=== PATIENT | male | born 1940 | race Caucasian/White ===

== ENCOUNTER 2016-07-01 02:35 | Emergency (ER) | payer MEDICARE, OTHER ==
[2016-07-01 03:55] LABS: ALANINE AMINOTRANSFERASE 58 U/L (21-72); ALBUMIN 3.2 g/dL (3.5-5.0); ALKALINE PHOSPHATASE 101 U/L (38-126); ANION GAP 10 (5-19); ASPARTATE AMINO TRANSFERASE 45 U/L (17-59); BILIRUBIN,TOTAL 0.7 mg/dL (0.2-1.3); BLOOD UREA NITROGEN 18 mg/dL (7-20); CALCIUM 8.8 mg/dL (8.4-10.2); CARBON DIOXIDE 31 mmol/L (22-30); CHLORIDE 97 mmol/L (98-107); CREATINE KINASE 44 U/L (55-170); CREATININE RESULT 1.23 mg/dL (0.52-1.25); GLUCOSE 128 mg/dL (75-110); POTASSIUM 4.2 mmol/L (3.6-5.0); SODIUM 137.6 mmol/L (137-145)
--- NOTE | 2016-07-01 03:56 | ER Document Report ---
ED General - General Chief Complaint: Abdominal Pain Stated Complaint: ABDOMINAL PAIN Notes: Patient is a 75-year-old male presents with complaint of pain in his left upper abdomen. No fevers. No diarrhea. Last bone marrow was 2 days ago. He did have vomiting 2 days ago. No vomiting since then. He had open heart surgery with coronary bypass 2 weeks ago. This was performed at [facility]. His pain is new tonight and has not been occurring since surgery until tonight. Pain is little bit worse when taking a quick deep breath. He is on Eliquis. - Related Data Allergies/Adverse Reactions: No Known Drug Allergies Allergy (Verified 07/01/16 03:50) Past Medical History - Social History Smoking Status: Never Smoker Frequency of alcohol use: None Drug Abuse: None Family History: Reviewed & Not Pertinent Review of Systems - Review of Systems Notes: My Normal Review Basic REVIEW OF SYSTEMS: CONSTITUTIONAL : Denies fever, chills, or sweats. Denies recent illness. EENT: Denies eye, ear, throat, or mouth pain or symptoms. Denies nasal or sinus congestion. CARDIOVASCULAR: Denies chest pain. RESPIRATORY: Denies cough, cold, or chest congestion. Denies shortness of breath, difficulty breathing, or wheezing. GASTROINTESTINAL: Left upper quadrant abdominal pain. Vomiting 2 days ago. Denies constipation. Last BM: GENITOURINARY: Denies difficulty urinating, painful urination, burning, frequency, or blood in urine. FEMALE GENITOURINARY: Denies vaginal bleeding, abnormal or irregular periods. LMP: MUSCULOSKELETAL: Denies neck or back pain or joint pain or swelling. SKIN: Denies rash or skin lesions. NEUROLOGICAL: Denies altered mental status or loss of consciousness. Denies headache. Denies weakness or paralysis or loss of use of either side. Denies problems with gait or speech. Denies sensory or motor loss. ALL OTHER SYSTEMS REVIEWED AND NEGATIVE. Physical Exam - Vital signs Vitals: Temp Resp BP Pulse Ox 97.5 F 19 130/60 H 94 07/01/16 02:53 07/01/16 02:53 07/01/16 02:53 07/01/16 02:53 - Notes Notes: General Appearance: Well nourished, alert, cooperative, no acute distress, mild obvious discomfort. Well-appearing Vitals: reviewed, See vital signs table. Head: no swelling or tenderness to the head Eyes: PERRL, EOMI, Conjuctiva clear Mouth: No decreasd moisture Neck: Supple, no neck tenderness, No thyromegaly Lungs: No wheezing, No rales, No rhonci, No accessory muscle use, good air exchange bilaterally. Heart: Normal rate, Regular rythm, No murmur, no rub Abdomen: Normal BS, soft, No rigidity, No reducible abdominal tenderness to palpation, No guarding, no rebound, no abdominal masses, no organomegaly Extremities: strength 5/5 in all extremities, good pulses in all extremities, no swelling or tenderness in the extremities, no edema. Skin: warm, dry, appropriate color, no rash Neuro: speech clear, oriented x 3, normal affect, responds appropriately to questions. Course - Vital Signs Vital signs: Temp Pulse Resp BP Pulse Ox 97.5 F 21 H 120/59 L 96 07/01/16 02:53 07/01/16 06:01 07/01/16 06:01 07/01/16 06:01 - Laboratory Result Diagrams: 07/01/16 02:53 07/01/16 02:53 Laboratory results interpreted by me: 07/01/16 07/01/16 02:53 02:53 RBC 3.27 L Hgb 10.0 L Hct 30.0 L RDW 15.6 H Plt Count 514 H Chloride 97 L Carbon Dioxide 31 H Est GFR (Non-Af Amer) 58 L Glucose 128 H Creatine Kinase 44 L Total Protein 6.0 L Albumin 3.2 L - EKG Interpretation by Me Additional EKG results interpreted by me: 07/01/16 03:56 EKG is reviewed and interpreted by me. EKG shows normal sinus rhythm with a rate of [address] segment elevation or depression. No ischemic T wave inversions. [place] interval, QRS duration, QTC intervals are within normal range. No old EKG available for comparison. - Transfer of Care Notes: 07/01/16 07:[address] angiogram of his chest did not show evidence pulmonary embolism but it did show a large pleural effusion on the left. He has a smaller pleural effusion on the right. Despite this the patient has no difficulty breathing. He is actually lying flat in the bed and has a pulse ox of 97% on room air and has no difficulty breathing at all. I do not suspect this to be a hemorrhagic effusion being that his hemoglobin 3 days ago was lower than it is today. I do suspect that this is probably why he has a pleuritic-type pain. Patient says that this pain is actually improved. His cardiac enzymes are normal. He looks well. I did talk to his surgeon, Dr. Ramírez, who requested as long as the patient clinically looks well that he follow-up in our office on Monday and that they would perform a tap of the fluid. I did explain this to the patient and he is comfortable with this. Patient clinically looks very well and I feel that that this is appropriate at this time. Did inform the patient that he must have a very low threshold to return to the ER immediately if he has any significant difficulty breathing, worsening pain, fevers, or feels unwell. Patient agrees. I did speak with Anitha from the patient's rehabilitation. I did inform her of the plan. She said they would be able to make the appointment and get him to the appointment. I also informed her that he must return to ER immediately if has any signs of difficulty breathing. She agrees. Spoke with the patient's daughter just to inform her of the plan. She is also agreeable to plan and had no further questions. Patient will be discharged home but again is strongly encouraged return to ER if there is any signs of difficulty breathing or feels unwell in anyway. Dictation of this chart was performed using voice recognition software; therefore, there may be some unintended grammatical errors. Discharge - Discharge Clinical Impression: Pleural effusion Condition: Good Disposition: HOME, SELF-CARE Additional Instructions: Please call office at [phone] to make a followup appointment for Monday so they can tap the fluid in his lung to analyze it. Please call the office today to make the appointment for Monday. Dr. Ramírez says the appointment will be with his partner Dr. Marroquin. Please have a low threshold to return to the ER immediately if Mr. Hernandez has any difficulty breathing , fevers, or appears unwell in any way. Dr. Ramírez office: [address] [place], [place] [phone]
[2016-07-01 04:03] LABS: ABSOLUTE EOSINOPHILS # (AUTO) 0.3 10^3/uL (0.0-0.6); ABSOLUTE LYMPHOCYTES (AUTO) 1.5 10^3/uL (0.5-4.7); ABSOLUTE MONOCYTES (AUTO) 0.7 10^3/uL (0.1-1.4); ABSOLUTE NEUT (AUTO) 5.7 10^3/uL (1.7-8.2); BASOPHILS % (AUTO) 0.5 % (0-2); EOSINOPHILS % (AUTO) 3.5 % (0-6); LYMPHOCYTES % (AUTO) 17.8 % (13-45); MEAN CORPUSCULAR HEMOGLOBIN 30.5 pg (27.0-33.4); MEAN CORPUSCULAR HGB CONC 33.2 g/dL (32.0-36.0); MEAN CORPUSCULAR VOLUME 92 fl (80-97); RED BLOOD COUNT 3.27 10^6/uL (4.35-5.55); RED CELL DISTRIBUTION WIDTH 15.6 % (11.5-14.0); SEGMENTED NEUTROPHILS % (AUTO) 69.2 % (42-78); WHITE BLOOD COUNT 8.3 10^3/uL (4.0-10.5)
[2016-07-01 04:07] LABS: CREATINE KINASE MB 1.31 ng/mL (<4.55)
[2016-07-01 04:09] LABS: TROPONIN I 0.034 ng/mL
[2016-07-01 09:32] VITALS: BP 121/63
--- NOTE | 2016-07-01 11:03 | EKG REPORT ---
SEVERITY:- BORDERLINE ECG - SINUS RHYTHM BORDERLINE T ABNORMALITIES, DIFFUSE LEADS : Confirmed by: Veronica Smith 01-Jul-2016 11:02:04
== END 2016-07-01 09:15 | disposition home or self-care (01) ==
LOC: ER 02:35
DX: J90 Pleural effusion, not elsewhere classified (principal); R10.12 Left upper quadrant pain
CPT/HCPCS: 36415; 71010; 71275; 80053; 82550; 82553; 84484; 85025; 93005; 93010; 99285

== ENCOUNTER 2016-07-04 14:53 | Inpatient (IN) | payer MEDICARE, OTHER ==
[2016-07-04 15:52] LABS: ABSOLUTE BASOPHILS # (AUTO) 0.1 10^3/uL (0.0-0.2); ABSOLUTE EOSINOPHILS # (AUTO) 0.3 10^3/uL (0.0-0.6); ABSOLUTE LYMPHOCYTES (AUTO) 1.4 10^3/uL (0.5-4.7); ABSOLUTE MONOCYTES (AUTO) 0.7 10^3/uL (0.1-1.4); ABSOLUTE NEUT (AUTO) 6.1 10^3/uL (1.7-8.2); BASOPHILS % (AUTO) 0.6 % (0-2); HEMATOCRIT 28.5 % (37.9-51.0); HEMOGLOBIN 9.3 g/dL (13.5-17.0); HGB HCT DIFFERENCE -0.6; LYMPHOCYTES % (AUTO) 16.4 % (13-45); MEAN CORPUSCULAR HEMOGLOBIN 29.9 pg (27.0-33.4); MEAN CORPUSCULAR HGB CONC 32.7 g/dL (32.0-36.0); MEAN CORPUSCULAR VOLUME 92 fl (80-97); MONOCYTES % (AUTO) 7.8 % (3-13); RED BLOOD COUNT 3.11 10^6/uL (4.35-5.55); RED CELL DISTRIBUTION WIDTH 15.6 % (11.5-14.0); SEGMENTED NEUTROPHILS % (AUTO) 72.2 % (42-78); WHITE BLOOD COUNT 8.5 10^3/uL (4.0-10.5)
[2016-07-04 16:10] LABS: ALANINE AMINOTRANSFERASE 40 U/L (21-72); ALBUMIN 2.5 g/dL (3.5-5.0); ALKALINE PHOSPHATASE 88 U/L (38-126); ANION GAP 10 (5-19); ASPARTATE AMINO TRANSFERASE 31 U/L (17-59); BILIRUBIN,TOTAL 0.6 mg/dL (0.2-1.3); BLOOD UREA NITROGEN 23 mg/dL (7-20); CALCIUM 8.3 mg/dL (8.4-10.2); CARBON DIOXIDE 29 mmol/L (22-30); CHLORIDE 97 mmol/L (98-107); CREATINE KINASE 118 U/L (55-170); CREATININE RESULT 1.24 mg/dL (0.52-1.25); GLUCOSE 152 mg/dL (75-110); LIPASE 426.6 U/L (23-300); POTASSIUM 4.4 mmol/L (3.6-5.0); SODIUM 135.7 mmol/L (137-145); TOTAL PROTEIN 5.2 g/dL (6.3-8.2)
[2016-07-04 16:22] LABS: CREATINE KINASE MB 2.22 ng/mL (<4.55); TROPONIN I 0.025 ng/mL
[2016-07-04] MEDS ORDERED: NORMAL SALINE 1000 ML 1,000 ML IV ONE (16:59)
[2016-07-04] MEDS ORDERED: LIDOCAINE 1% INJ-PF (10 MG/ML) 30 ML SDV INJ ONE (17:21)
--- NOTE | 2016-07-04 17:26 | ER Document Report ---
ED General - General Chief Complaint: Fall Injury Stated Complaint: FALL;BODY PAIN Mode of Arrival: Medic Information source: Patient Notes: 75-year-old male who has had low blood pressure over the past few days and was actually taken off his lisinopril presents with complaints of syncope after a bowel movement. pt denies any chest pain sob, pt found hypotensvie by ems - HPI Onset: Just prior to arrival Onset/Duration: Sudden Quality of pain: Achy Severity: Mild Pain Level: 1 Associated symptoms: Other Exacerbated by: Denies Relieved by: Denies Similar symptoms previously: No Recently seen / treated by doctor: No - Related Data Allergies/Adverse Reactions: No Known Drug Allergies Allergy (Verified 07/01/16 03:50) Past Medical History - Social History Smoking Status: Never Smoker Cigarette use (# per day): No Chew tobacco use (# tins/day): No Smoking Education Provided: No Family History: Reviewed & Not Pertinent Review of Systems - Review of Systems Notes: REVIEW OF SYSTEMS: CONSTITUTIONAL : Denies fever, chills, or sweats. Denies recent illness. EENT: Denies eye, ear, throat, or mouth pain or symptoms. Denies nasal or sinus congestion or discharge. Denies throat, tongue, or mouth swelling or difficulty swallowing. CARDIOVASCULAR: Denies chest pain. Denies palpitations or racing or irregular heart beat. Denies ankle edema. RESPIRATORY: Denies cough, cold, or chest congestion. Denies shortness of breath, difficulty breathing, or wheezing. GASTROINTESTINAL: Denies abdominal pain or distention. Denies nausea, vomiting , or diarrhea. Denies blood in vomitus, stools, or per rectum. Denies black, tarry stools. Denies constipation. GENITOURINARY: Denies difficulty urinating, painful urination, burning, frequency, blood in urine, or discharge. MUSCULOSKELETAL: Denies back or neck pain or stiffness. Denies joint pain or swelling. SKIN: laceration HEMATOLOGIC : Denies easy bruising or bleeding. LYMPHATIC: Denies swollen, enlarged glands. NEUROLOGICAL: syncope PSYCHIATRIC: Denies anxiety or stress. Denies depression, suicidal ideation, or homicidal ideation. ALL OTHER SYSTEMS REVIEWED AND NEGATIVE. Dictation was performed using [employer] voice recognition software PHYSICAL EXAMINATION: GENERAL: Well-appearing, well-nourished and in no acute distress. C collar in place. On backboard. GCS 15 HEAD: superifical abrasion and laceration EYES: Pupils equal round and reactive to light, extraocular movements intact, sclera anicteric, conjunctiva are normal. ENT: Nares patent, oropharynx clear without exudates. Moist mucous membranes. No hemanotympanum . No blood in nares. No dental fracture NECK: Normal range of motion, supple without lymphadenopathy. Trachea midline LUNGS: Breath sounds clear to auscultation bilaterally and equal. No wheezes rales or rhonchi. HEART: Regular rate and rhythm without murmurs. Pulses intact all throughout. ABDOMEN: Soft, nontender, nondistended abdomen. No guarding, no rebound. No masses appreciated. Musculoskeletal: Normal range of motion, no pitting or edema. No cyanosis. Hip non tender, stable. NEUROLOGICAL: Cranial nerves grossly intact. Normal speech, normal gait. Normal sensory, motor, and reflex exams. PSYCH: Normal mood, normal affect. SKIN: abrasion to the forehead, left infraorbital laceration 4 cm U/S fast exam notes no obvious free fluid but this is a nondiagnostic evaluation Physical Exam - Vital signs Vitals: Resp 16 07/04/16 15:15 Course - Re-evaluation Re-evalutation: 07/04/16 17:25 I randal patient had a syncopal episode after he had bm due to hypotension. Pt imaging was negative, c collar was removed, pt will be sutured 07/04/16 20:01 pt was note ot be hypotensive after 3 L , 87/43, I will admit to hospitalist service 07/04/16 20:34 pt again becomes hypotensive when standing, I spoke with Dr Patricio regarding admission, requests stat Echo and Dr Valero consult 07/04/16 20:[address] valero, he will read cardiac doppler 07/04/16 20:42 - Vital Signs Vital signs: Temp Pulse Resp BP Pulse Ox 97.9 F 22 H 95/53 L 99 07/04/16 20:05 07/04/16 20:01 07/04/16 20:00 07/04/16 20:01 - Laboratory Result Diagrams: 07/04/16 15:30 07/04/16 15:30 Laboratory results interpreted by me: 07/04/16 07/04/16 07/04/16 15:30 15:30 15:30 RBC 3.11 L Hgb 9.3 L Hct 28.5 L RDW 15.6 H Plt Count 467 H Sodium 135.7 L Chloride 97 L BUN 23 H Est GFR (Non-Af Amer) 57 L Glucose 152 H Calcium 8.3 L NT-Pro-B Natriuret Pep 1130 H Total Protein 5.2 L Albumin 2.5 L Lipase 426.6 H - Diagnostic Test Radiology reviewed: Image reviewed, Reports reviewed - EKG Interpretation by Me EKG shows normal: Sinus rhythm, [place], Intervals, QRS Complexes Procedures - Laceration/Wound Repair Left Face Time completed: 20:00 Wound length (cm): 4 Wound's Depth, Shape: Superficial Laceration pre-procedure: Sterile PPE donned Anesthetic type: 1% Lidocaine Volume Anesthetic (mLs): 10 Wound explored: Clean, No foreign body removed Wound Debrided: Moderate Wound Repaired With: Sutures Number of Sutures: 4 Post-procedure wound care: Sterile dressing applied Post-procedure NV exam normal: Yes Complications: No Critical Care Note - Critical Care Note Total time excluding time spent on procedures (mins): 45 Comments: 45 minutes of critical care time spent in direct contact evaluating and reevaluating the patient, treating symptoms, reviewing labs and studies and speaking with family and consultants excluding any procedures Discharge - Discharge Clinical Impression: Syncope and collapse, Pleural effusion, Orthostatic hypotension Facial trauma Qualifiers: Encounter type: initial encounter Qualified Code(s): S09.93XA - Unspecified injury of face, initial encounter Condition: Stable Disposition: ADMITTED INPATIENT Admitting Provider: Hospitalist Unit Admitted: Telemetry
--- NOTE | 2016-07-04 18:14 | EKG REPORT ---
SEVERITY:- ABNORMAL ECG - SINUS RHYTHM NONSPECIFIC T ABNORMALITIES, ANTERIOR LEADS PROLONGED QT INTERVAL : Confirmed by: Vladimir Woods MD 04-Jul-2016 18:13:24
[2016-07-04] MEDS ORDERED: KETOROLAC TROMETHAMINE INJ/PF 30 MG/1 ML SDV ONE (19:11)
[2016-07-04] MEDS ORDERED: IPRATROPIUM/ALBUTEROL 0.5-2.5 MG/3 ML AMPUL NEB PRN (21:11)
[2016-07-04] MEDS ORDERED: ONDANSETRON HCL INJ/PF 4 MG/2 ML SDV IV PRN (21:11)
[2016-07-04] MEDS ORDERED: MAGNESIUM HYDROXIDE SUSP 30 ML UDCUP PO PRN (21:11)
[2016-07-04] MEDS ORDERED: LEVOTHYROXINE SODIUM INJ/PF 0.5 MG SDV IV SCH (23:45)
[2016-07-05 00:11] LABS: CREATINE KINASE MB 4.11 ng/mL (<4.55); TROPONIN I 0.03 ng/mL
[2016-07-05] MEDS: ACETAMINOPHEN 325 MG TABLET PO PRN ×4 (01:04→22:00)
[2016-07-05] MEDS ORDERED: LEVOTHYROXINE SODIUM INJ/PF 0.1 MG SDV IV ONE (03:00)
[2016-07-05 03:55] LABS: APPEARANCE,URINE SLIGHTLY-CLOUDY; BILIRUBIN,URINE NEGATIVE (NEGATIVE); GLUCOSE, URINE NEGATIVE (NEGATIVE); KETONES,URINE NEGATIVE (NEGATIVE); LEUKOCYTE ESTERASE,URINE NEGATIVE (NEGATIVE); NITRITE,URINE NEGATIVE (NEGATIVE); PROTEIN,URINE NEGATIVE (NEGATIVE); URINE SPECIFIC GRAVITY 1.015; UROBILINOGEN,URINE NEGATIVE mg/dL (<2.0)
[2016-07-05 04:04] LABS: URINE BARBITURATES SCREEN NEGATIVE; URINE METHADONE SCREEN NEGATIVE; URINE OPIATES LOW NEGATIVE; URINE PHENCYCLIDINE SCREEN NEGATIVE
[2016-07-05 05:59] LABS: ABSOLUTE EOSINOPHILS # (AUTO) 0.3 10^3/uL (0.0-0.6); ABSOLUTE LYMPHOCYTES (AUTO) 1.6 10^3/uL (0.5-4.7); ABSOLUTE MONOCYTES (AUTO) 0.7 10^3/uL (0.1-1.4); ABSOLUTE NEUT (AUTO) 4.3 10^3/uL (1.7-8.2); BASOPHILS % (AUTO) 0.4 % (0-2); EOSINOPHILS % (AUTO) 3.9 % (0-6); HEMATOCRIT 27.2 % (37.9-51.0); HGB HCT DIFFERENCE -0.2; LYMPHOCYTES % (AUTO) 23.8 % (13-45); MEAN CORPUSCULAR VOLUME 91 fl (80-97); MONOCYTES % (AUTO) 9.7 % (3-13); RED CELL DISTRIBUTION WIDTH 15.6 % (11.5-14.0); SEGMENTED NEUTROPHILS % (AUTO) 62.2 % (42-78); WHITE BLOOD COUNT 6.8 10^3/uL (4.0-10.5)
[2016-07-05 06:21] LABS: ANION GAP 9 (5-19); BLOOD UREA NITROGEN 24 mg/dL (7-20); CALCIUM 8.1 mg/dL (8.4-10.2); CARBON DIOXIDE 27 mmol/L (22-30); CHLORIDE 101 mmol/L (98-107); CREATININE RESULT 1.15 mg/dL (0.52-1.25); GLUCOSE 127 mg/dL (75-110); POTASSIUM 4.3 mmol/L (3.6-5.0); SODIUM 136.6 mmol/L (137-145)
[2016-07-05 06:31] LABS: CREATINE KINASE MB 3.22 ng/mL (<4.55); TROPONIN I 0.043 ng/mL
[2016-07-05 07:02] LABS: FREE T3 2.53 pg/mL (2.77-5.27)
--- NOTE | 2016-07-05 09:14 | PDOC H&P ---
History of Present Illness Admission Date/PCP: 07/04/16 21:11 Patient complains of: Fall History of Present Illness: SASHA GARCIA SR is a 75 year old male with a past medical history recent coronary artery bypass graft 2 weeks ago at [facility] who had been in his usual state of health until approximately 4 days ago having an episode of shortness of breath and lightheadedness prompting seek evaluation emergency room he was found to have orthostatic hypotension and pleural effusions thought secondary to recent surgery and discontinued lisinopril with plans for follow-up with cardiology for thoracentesis. However the patient sustained a presyncopal episode resulting in a fall and facial laceration while at rehabilitation and brought to the emergency room for evaluation where his workup was notable for hypotension of 93/49 and sinus tachycardia, CT imaging of the head C-spine and chest are unremarkable for any findings. Cardiac labs do reveal an elevated BNP, he is referred to the hospitalist for admission pending a stat echocardiogram and cardiology consult. Patient currently denies chest pain shortness of breath nausea vomiting but remains orthostatic Past Medical History Cardiac Medical History: Reports: Coronary Artery Disease, Hyperlipidema, Hypertension Endocrine Medical History: Reports: Diabetes Mellitus Type 2 Past Surgical History Past Surgical History: Reports: Coronary Artery Bypass Graft Social History Information Source: Emergency Med Personnel Lives with: Long-Term Smoking Status: Former Smoker Cigarettes Packs Per Day: 1 Number of Years Smokin Last Time Smoked: 07/26/1979 Frequency of Alcohol Use: Rare Hx Recreational Drug Use: No Drugs: None Hx Prescription Drug Abuse: No - Advance Directive Resuscitation Status: Full Code Family History Family History: Hypertension Parental Family History Reviewed: Yes Children Family History Reviewed: Yes Sibling(s) Family History Reviewed.: Yes Medication/Allergy Home Medications: Aspirin [Aspirin EC] 81 mg PO DAILY 07/04/16 Atorvastatin Calcium [Lipitor 20 mg Tablet] 20 mg PO QHS 07/04/16 Gabapentin [Neurontin 300 mg Capsule] 300 mg PO Q12 07/04/16 Glipizide [Glipizide Xl] 10 mg PO DAILY 07/04/16 Metformin HCl [Glucophage] 1,000 mg PO BIDACBS 07/04/16 Pioglitazone HCl [Actos] 15 mg PO DAILY 07/04/16 Ranitidine HCl [Zantac] 150 mg PO DAILY 07/04/16 Ibuprofen [Motrin 600 mg Tablet] 600 mg PO 07/05/16 Tamsulosin HCl [Flomax 0.4 mg Cap.sr] 1 cap PO DAILY 07/05/16 Allergies/Adverse Reactions: No Known Drug Allergies Allergy (Verified 07/01/16 03:50) Review of Systems Constitutional: ABSENT: chills, fever(s), headache(s), weight gain, weight loss Eyes: ABSENT: visual disturbances Ears: ABSENT: hearing changes Cardiovascular: PRESENT: as per HPI, orthropnea, palpitations. ABSENT: chest pain, dyspnea on exertion, edema Respiratory: ABSENT: cough, hemoptysis Gastrointestinal: ABSENT: abdominal pain, constipation, diarrhea, hematemesis, hematochezia, nausea, vomiting Genitourinary: ABSENT: dysuria, hematuria Musculoskeletal: ABSENT: joint swelling Integumentary: ABSENT: rash, wounds Neurological: ABSENT: abnormal gait, abnormal speech, confusion, dizziness, focal weakness, syncope Psychiatric: ABSENT: anxiety, depression, homidical ideation, suicidal ideation Endocrine: ABSENT: cold intolerance, heat intolerance, polydipsia, polyuria Hematologic/Lymphatic: ABSENT: easy bleeding, easy bruising Physical Exam Vital Signs: Temp Pulse Resp BP Pulse Ox 97.8 F 92 17 91/51 L 96 07/05/16 08:10 07/05/16 08:10 07/05/16 08:10 07/05/16 08:10 07/05/16 08:10 Intake & Output 07/03/16 07/04/16 07/05/16 11:59 11:59 11:59 Intake Total 420 Output Total 1100 Balance -680 Weight 94.7 kg General appearance: PRESENT: cooperative, mild distress Head exam: PRESENT: other - Trauma to the left cheek with 1 cm laceration, no periorbital edema or significant hematoma. ABSENT: atraumatic Eye exam: PRESENT: conjunctiva pink, EOMI, PERRLA. ABSENT: scleral icterus Ear exam: PRESENT: normal external ear exam Mouth exam: PRESENT: moist, tongue midline Neck exam: ABSENT: carotid bruit, JVD, lymphadenopathy, meningismus, tenderness Respiratory exam: PRESENT: clear to auscultation gildardo, decreased breath sounds - Left side bottom third, tachypnea. ABSENT: crackles, rales, rhonchi, stridor, symmetrical, unlabored, wheezes Cardiovascular exam: PRESENT: RRR. ABSENT: diastolic murmur, rubs, systolic murmur Pulses: PRESENT: normal dorsalis pedis pul Vascular exam: PRESENT: normal capillary refill GI/Abdominal exam: PRESENT: normal bowel sounds, soft. ABSENT: distended, guarding, mass, organolmegaly, rebound, tenderness Rectal exam: PRESENT: deferred Extremities exam: PRESENT: full ROM. ABSENT: calf tenderness, clubbing, pedal edema Neurological exam: PRESENT: alert, awake, oriented to person, oriented to place , oriented to time, oriented to situation, CN II-XII grossly intact. ABSENT: motor sensory deficit Psychiatric exam: PRESENT: appropriate affect, normal mood. ABSENT: homicidal ideation, suicidal ideation Skin exam: PRESENT: dry, intact, warm. ABSENT: cyanosis, rash Results Laboratory Results: 07/05/16 05:37 07/05/16 05:37 07/04/16 07/05/16 07/05/16 23:25 03:30 05:37 WBC 6.8 RBC 3.00 L Hgb 9.0 L Hct 27.2 L MCV 91 MCH 30.0 MCHC 33.0 RDW 15.6 H Plt Count 404 Seg Neutrophils % 62.2 Lymphocytes % 23.8 Monocytes % 9.7 Eosinophils % 3.9 Basophils % 0.4 Absolute Neutrophils 4.3 Absolute Lymphocytes 1.6 Absolute Monocytes 0.7 Absolute Eosinophils 0.3 Absolute Basophils 0.0 Sodium Potassium Chloride Carbon Dioxide Anion Gap BUN Creatinine Est GFR ( Amer) Est GFR (Non-Af Amer) Glucose Calcium Prealbumin 18.0 Free T4 Free T3 pg/mL Urine Color YELLOW Urine Appearance SLIGHTLY-CLOUDY Urine pH 5.0 Ur Specific [place] 1.015 Urine Protein NEGATIVE Urine Glucose (UA) NEGATIVE Urine Ketones NEGATIVE Urine Blood NEGATIVE Urine Nitrite NEGATIVE Ur Leukocyte Esterase NEGATIVE Urine WBC (Auto) 1 Urine RBC (Auto) 4 07/05/16 07/05/16 05:37 05:37 WBC RBC Hgb Hct MCV MCH MCHC RDW Plt Count Seg Neutrophils % Lymphocytes % Monocytes % Eosinophils % Basophils % Absolute Neutrophils Absolute Lymphocytes Absolute Monocytes Absolute Eosinophils Absolute Basophils Sodium 136.6 L Potassium 4.3 Chloride 101 Carbon Dioxide 27 Anion Gap 9 BUN 24 H Creatinine 1.15 Est GFR ( Amer) > 60 Est GFR (Non-Af Amer) > 60 Glucose 127 H Calcium 8.1 L Prealbumin Free T4 2.00 Free T3 pg/mL 2.53 L Urine Color Urine Appearance Urine pH Ur Specific [place] Urine Protein Urine Glucose (UA) Urine Ketones Urine Blood Urine Nitrite Ur Leukocyte Esterase Urine WBC (Auto) Urine RBC (Auto) 07/04/16 07/04/16 07/05/16 23:25 23:25 05:37 Creatine Kinase 294 H 283 H CK-MB (CK-2) 4.11 Troponin I 0.030 07/05/16 05:37 Creatine Kinase CK-MB (CK-2) 3.22 Troponin I 0.043 Impressions: Head CT 07/04/16 00:00 IMPRESSION: CHRONIC CHANGES OF ATROPHY AND MICROVASCULAR ISCHEMIA. NO ACUTE PROCESS. Cervical Spine CT 07/04/16 15:07 IMPRESSION: CHRONIC DEGENERATIVE CHANGES. NO ACUTE FINDINGS. Chest X-Ray 07/04/16 20:03 IMPRESSION: Stable. Assessment & Plan - Diagnosis (1) Syncope and collapse Is this a current diagnosis for this admission?: YesPlan: I'm concerned for new hypotension large left-sided pleural effusion and recent open heart surgery will obtain cardiology consult and stat 2-D echo, he'll receive an IV fluid challenge FLACO stockings and SCDs and orthostatic blood pressure monitoring (2) Pleural effusion Is this a current diagnosis for this admission?: YesPlan: Likely secondary to recent open heart surgery though I'm concerned for significant reduction in ejection fraction, 2-D echo and cardiac consult pending (3) Facial trauma Qualifiers: Encounter type: initial encounter Qualified Code(s): S09.93XA - Unspecified injury of face, initial encounter Plan: Secondary to #1 symptomatically management (4) Hypothyroid Is this a current diagnosis for this admission?: YesPlan: Possibly contributing to orthostatic hypotension though I suspect elevated TSH is a stress response following head trauma though I will initiate a low-dose Synthroid at 50 g IV - Time Time Spent: 50 to 70 Minutes
--- NOTE | 2016-07-05 10:22 | PDOC CONSULTATION ---
Consultation Consult Date: 07/05/16 Attending physician:: ATILIO GRAVES Consult reason:: Syncope History of Present Illness Admission Date/PCP: 07/04/16 21:11 Patient complains of: Syncopal spell and low blood pressure History of Present Illness: SASHA GARCIA SR is a 75 year old male with a past medical history recent coronary artery bypass graft 2 weeks ago at [facility] who had been in his usual state of health until approximately 4 days ago having an episode of shortness of breath and lightheadedness prompting seek evaluation emergency room he was found to have orthostatic hypotension and pleural effusions thought secondary to recent surgery and discontinued lisinopril with plans for follow-up with cardiology for thoracentesis. However the patient sustained a presyncopal episode resulting in a fall and facial laceration while at rehabilitation and brought to the emergency room for evaluation where his workup was notable for hypotension of 93/49 and sinus tachycardia, CT imaging of the head C-spine and chest are unremarkable for any findings. Cardiac labs do reveal an elevated BNP. Cardiac enzymes has been negative.. Patient currently denies chest pain shortness of breath nausea vomiting but remains orthostatic. On questioning patient claims that he was on the toilet seat having a bowel movement when he passed out and fell hitting his head. He does not have the memory of falling. He came around likely and subsequently came to the emergency room and was admitted. Patient claims that his blood pressure has been low lately. Past Medical History Cardiac Medical History: Reports: Coronary Artery Disease, Hyperlipidema, Hypertension Endocrine Medical History: Reports: Diabetes Mellitus Type 2 Past Surgical History Past Surgical History: Reports: Coronary Artery Bypass Graft Social History Information Source: Patient Lives with: Group Home Smoking Status: Former Smoker Cigarettes Packs Per Day: 1 Number of Years Smokin Last Time Smoked: 07/26/1979 Frequency of Alcohol Use: Rare Hx Recreational Drug Use: No Drugs: None Hx Prescription Drug Abuse: No - Advance Directive Resuscitation Status: Full Code Family History Family History: Hypertension Parental Family History Reviewed: Yes Children Family History Reviewed: Yes Sibling(s) Family History Reviewed.: Yes - Negative for premature coronary artery disease or sudden cardiac in the family amongst first degree relatives. Medication/Allergy Home Medications: Aspirin [Aspirin EC] 81 mg PO DAILY 07/05/16 Atorvastatin Calcium [Lipitor 80 mg Tablet] 90 mg PO QHS 07/05/16 Docusate Sodium [Colace 100 mg Capsule] 100 mg PO QHS PRN 07/05/16 Exenatide Microspheres [Bydureon Pen] 2 mg SQ STALLWORTH 07/05/16 Ferrous Sulfate [Feosol] 325 mg PO DAILY 07/05/16 Gabapentin [Neurontin 300 mg Capsule] 300 mg PO BID 07/05/16 Glipizide [Glipizide Xl] 10 mg PO DAILY 07/05/16 Ibuprofen [Motrin 600 mg Tablet] 600 mg PO QAMP PRN 07/05/16 Ibuprofen [Motrin 600 mg Tablet] 600 mg PO QPMP PRN 07/05/16 Lisinopril [Prinivil 10 mg Tablet] 10 mg PO DAILY 07/05/16 Metformin HCl [Metformin HCl ER] 1,000 mg PO BIDACBS 07/05/16 Nitroglycerin [Nitrostat] 0.4 mg PO Q5MP PRN 07/05/16 Pioglitazone HCl [Actos] 30 mg PO DAILY 07/05/16 Ranitidine HCl [Acid Homoeopath] 150 mg PO BID 07/05/16 Tamsulosin HCl [Flomax] 0.4 mg PO DAILY 07/05/16 Allergies/Adverse Reactions: No Known Drug Allergies Allergy (Verified 07/01/16 03:50) Review of Systems Review of Systems: Please see history of present illness and past medical history as wall. Constitutional: No fever or chills reported. Head : No recent chronic headaches, recent head injury. Eyes: No recent eye pain, diplopia, redness, discharge, acute visual changes. Ears: No recent chronic ear pain, acute hearing loss, ear discharge. Oral cavity: No recent ulcerations, bleeding, oral cavity discomfort. Neck: No recent acute neck pain reported. Hematologic: No recent easy bruising or bleeding or hematologic malignancy reported. Lymphatic: No recent lymphatic malignancy, chronic lymphadenopathy reported yet Cardiovascular system review: See history of present illness. Recent CABG. No sustained palpitations, syncope, near syncope. Respiratory system review: No recent chronic cough, hemoptysis, blood clots in the lungs reported. Mild Shortness of breath on exertion Gastrointestinal system review: Negative for any recent acute or chronic abdominal pain, hematemesis, melena, recent change in bowel habits. Genitourinary system review: No recent acute or chronic hematuria, flank pain, UTI etc. reported. Skin system review: Negative for any recent abnormal bruising, no rash, no pruritus reported. Neurologic: No prior history of strokes, mini strokes, seizure disorder. Positive for syncopal spell as noted in history of present illness. Psychologic: No history of major psychosis or depression reported. Musculoskeletal: Minor aches and pains reported. No acute joint swelling reported. Endocrine: No recent polyuria, polydipsia, recent heat or cold intolerance. Physical Exam Vital Signs: Temp Pulse Resp BP Pulse Ox 97.8 F 92 17 91/51 L 96 07/05/16 08:10 07/05/16 08:10 07/05/16 08:10 07/05/16 08:10 07/05/16 08:10 Intake & Output 07/04/16 07/05/16 07/06/16 06:59 06:59 06:59 Intake Total 420 Output Total 1100 Balance -680 Weight 94.7 kg Exam: GENERAL: well-nourished and in no acute distress. Alert and oriented x3 HEAD: Atraumatic, normocephalic. Facial abrasion and a sutured wound is noted left side of forehead. EYES: Pupils equal round and reactive to light, extraocular movements intact, sclera anicteric, conjunctiva are normal. ENT: TMs normal, nares patent, oropharynx clear without exudates. Moist mucous membranes. No oral ulcerations or bleeding gums noted NECK: supple without lymphadenopathy. Trachea is central. No cervical or axillary lymphadenopathy noted. Carotids are 2+, JVD WNL LUNGS: Respiration seems nonlabored, no significant accessory muscle action noted. Mild bibasilar basal crackles and mild dullness noted. CHEST: Palpation of the chest wall shows significant chest wall tenderness at the sternal incision site but no other abnormalities. HEART: [place] [employer] TESTER, No PSH, 1/6 KIM aortic area, 1/6 diaz systolic murmur mitral area, no rubs, no gallops. ABDOMEN: Soft, no significant tenderness appreciated, normoactive bowel sounds. No guarding, no rebound. No rigidity noted . No masses appreciated. EXTREMITIES: Pedal pulses are 1-2+, no calf tenderness noted. No clubbing or cyanosis.trace to 1+ pedal edema noted NEUROLOGICAL: Focused neurological exam showed no significant neurologic deficit. Normal speech, no focal weakness appreciated. PSYCH: Normal mood, normal affect. Judgment and insight within normal limits. SKIN: No significant ecchymosis, rash, ulcerations or signs of pruritus noted. MUSCULOSKELETAL EXAM: No significant joint swelling noted. Results Laboratory Results: 07/05/16 05:37 07/05/16 05:37 07/04/16 07/05/16 07/05/16 23:25 03:30 05:37 WBC 6.8 RBC 3.00 L Hgb 9.0 L Hct 27.2 L MCV 91 MCH 30.0 MCHC 33.0 RDW 15.6 H Plt Count 404 Seg Neutrophils % 62.2 Lymphocytes % 23.8 Monocytes % 9.7 Eosinophils % 3.9 Basophils % 0.4 Absolute Neutrophils 4.3 Absolute Lymphocytes 1.6 Absolute Monocytes 0.7 Absolute Eosinophils 0.3 Absolute Basophils 0.0 Sodium Potassium Chloride Carbon Dioxide Anion Gap BUN Creatinine Est GFR ( Amer) Est GFR (Non-Af Amer) Glucose Calcium Prealbumin 18.0 Free T4 Free T3 pg/mL Urine Color YELLOW Urine Appearance SLIGHTLY-CLOUDY Urine pH 5.0 Ur Specific [place] 1.015 Urine Protein NEGATIVE Urine Glucose (UA) NEGATIVE Urine Ketones NEGATIVE Urine Blood NEGATIVE Urine Nitrite NEGATIVE Ur Leukocyte Esterase NEGATIVE Urine WBC (Auto) 1 Urine RBC (Auto) 4 07/05/16 07/05/16 05:37 05:37 WBC RBC Hgb Hct MCV MCH MCHC RDW Plt Count Seg Neutrophils % Lymphocytes % Monocytes % Eosinophils % Basophils % Absolute Neutrophils Absolute Lymphocytes Absolute Monocytes Absolute Eosinophils Absolute Basophils Sodium 136.6 L Potassium 4.3 Chloride 101 Carbon Dioxide 27 Anion Gap 9 BUN 24 H Creatinine 1.15 Est GFR ( Amer) > 60 Est GFR (Non-Af Amer) > 60 Glucose 127 H Calcium 8.1 L Prealbumin Free T4 2.00 Free T3 pg/mL 2.53 L Urine Color Urine Appearance Urine pH Ur Specific [place] Urine Protein Urine Glucose (UA) Urine Ketones Urine Blood Urine Nitrite Ur Leukocyte Esterase Urine WBC (Auto) Urine RBC (Auto) 07/04/16 07/04/16 07/05/16 23:25 23:25 05:37 Creatine Kinase 294 H 283 H CK-MB (CK-2) 4.11 Troponin I 0.030 07/05/16 05:37 Creatine Kinase CK-MB (CK-2) 3.22 Troponin I 0.043 EKG Comments: Sinus rhythm with minor nonspecific T wave changes. Impressions: Head CT 07/04/16 00:00 IMPRESSION: CHRONIC CHANGES OF ATROPHY AND MICROVASCULAR ISCHEMIA. NO ACUTE PROCESS. Cervical Spine CT 07/04/16 15:07 IMPRESSION: CHRONIC DEGENERATIVE CHANGES. NO ACUTE FINDINGS. Chest X-Ray 07/04/16 20:03 IMPRESSION: Stable. Assessment & Plan - Diagnosis (1) Coronary artery disease Qualifiers: Coronary Disease-Associated Artery/Lesion type: unspecified vessel or lesion type Associated angina: angina presence unspecified Is this a current diagnosis for this admission?: Yes (2) CHF (congestive heart failure) Qualifiers: Congestive heart failure type: unspecified congestive heart failure type Congestive heart failure chronicity: unspecified congestive heart failure chronicity Qualified Code(s): I50.9 - Heart failure, unspecified Is this a current diagnosis for this admission?: Yes (3) Orthostatic hypotension Is this a current diagnosis for this admission?: Yes (4) Syncope and collapse Is this a current diagnosis for this admission?: Yes (5) Pleural effusion Is this a current diagnosis for this admission?: Yes - Notes Notes: Syncope and collapse: Most likely vasovagal based on history, post defecation syncope. Recommend avoiding constipation. Recommend avoiding overdiuresis. Avoid vasodilators. Patient should be considered for event monitor as an outpatient. Orthostatic hypotension: Most likely related to diabetic neuropathy. His blood pressure stays low, will recommend adding Midodrin to the regimen. CAD: Patient is status post CABG. Currently stable without any angina or angina equivalent symptoms. Discussed symptoms associated with unstable angina, acute coronary syndrome, myocardial infarction etc.aggressive risk factor modification advised. CHF: Patient has bilateral pleural effusion and also elevated BNP therefore has CHF. Currently seems relatively euvolemic. We will continue to follow patient. Bilateral pleural effusion: Most likely related to CHF. Follow CHF pathway. Recommend antilipid therapy. - Time Time Spent: 50 to 70 Minutes - CODE STATUS was discussed, patient remains full code. Surrogate decision-maker patient's . Multiple medical problems were addressed.More than 50% of the time spent coordinating care, discussing management plans with involved caregivers. Management plans discussed with involved personnels. Medical decision making was of moderate to severe complexity. Medications reviewed and adjusted accordingly: Yes
--- NOTE | 2016-07-05 10:50 | XCELERA REPORT ---
[address] [address] Transthoracic Echocardiogram Report Name: SASHA GARCIA SR Age: 75 yrs Gender: Male : 1940 Patient Status: Inpatient Patient Location: 5\[id number]\538\[id number] Study Date: 07/05/2016 09:22 AM Height: 63 in Weight: 220 lb BSA: 2.0 m2 Procedure: A complete two-dimensional transthoracic echocardiogram was performed (2D, M-mode, spectral and color flow Doppler). The study was technically limited with all images being suboptimal in quality. Reason For Study: hypotension, syncope post bypass Ordering Physician: VERONICA PICKARD Performed By: Isis Sena Interpretation Summary Due to the poor quality of the echocardiogram, an assessment of left ventricular ejection fraction cannot be made. Best estimate is LVEF is well preserved. The study was technically limited with all images being suboptimal in quality. LV diastolic function could not be adequately assessed. There is mild concentric left ventricular hypertrophy. The left ventricle is grossly normal size. Regional wall motion abnormalities cannot be excluded due to limited visualization. Right ventricular function cannot be assessed due to poor image quality. The right atrium is normal in size The left atrium is mildly dilated. There is a trace amount of mitral regurgitation There is no mitral valve stenosis. There is no aortic valve stenosis No aortic regurgitation is present. There is a trace or physiologic amount of tricuspid regurgitation There is no tricuspid stenosis. Minimal pericardial effusion. Small right pleural effusion. Small left pleural effusion. Consider additional methods to assess LVEF such as MUGA scan, CTA heart, cardiac MRI, LEOBARDO, etc. if clinically indicated. MMode/2D Measurements \T\ Calculations RVDd: 2.7 cm LVIDd: 3.6 cm FS: 32.9 % Ao root diam: 3.1 cm IVSd: 1.0 cm LVIDs: 2.4 cm EDV(Teich): 53.3 ml LVPWd: 0.96 cmESV(Teich): 20.1 ml Ao root area: 7.5 cm2 EF(Teich): 62.3 % LA dimension: 2.6 cm LVOT diam: 2.1 cm LVOT area: 3.4 cm2 Doppler Measurements \T\ Calculations MV E max sherwin: MV P1/2t max sherwin: Ao V2 max: LV V1 max P.9 cm/sec 82.9 cm/sec 108.6 cm/sec 2.7 mmHg MV A max sherwin: MV P1/2t: 55.0 msec Ao max PG: LV V1 max: 70.6 cm/sec MVA(P1/2t): 4.0 cm2 4.7 mmHg 82.6 cm/sec MV E/A: 1.1 MV dec slope: IVANIA(V,D): 2.6 cm2 441.3 cm/sec2 MV dec time: 0.18 sec PA V2 max: 72.6 cm/sec PA max P.1 mmHg Left Ventricle The left ventricle is grossly normal size. There is mild concentric left ventricular hypertrophy. Due to the poor quality of the echocardiogram, an assessment of left ventricular ejection fraction cannot be made. Best estimate is well preserved. Consider additional methods to assess LVEF such as MUGA scan, CTA heart, cardiac MRI, LEOBARDO, etc. if clinically indicated. LV diastolic function could not be adequately assessed. Regional wall motion abnormalities cannot be excluded due to limited visualization. Right Ventricle The right ventricle is grossly normal size. Right ventricular function cannot be assessed due to poor image quality. Atria The right atrium is normal in size. The left atrium is mildly dilated. Mitral Valve The mitral valve is not well visualized. There is no mitral valve stenosis. There is a trace amount of mitral regurgitation. Aortic Valve The aortic valve is not well visualized secondary to technical limitations. There is no aortic valve stenosis. No aortic regurgitation is present. Tricuspid Valve The tricuspid valve is not well visualized secondary to technical limitations. There is no tricuspid stenosis. There is a trace or physiologic amount of tricuspid regurgitation. Pulmonic Valve The pulmonic valve is not well visualized. Great Vessels The aortic root is not well visualized. The inferior vena cava was not well visualized. Effusions Minimal pericardial effusion. Small right pleural effusion. Small left pleural effusion. : VERONICA PICKARD > Veronica Pickard
[2016-07-05] MEDS: DOCUSATE SODIUM 100 MG CAPSULE PO SCH ×2 (10:53→18:32)
--- NOTE | 2016-07-05 11:43 | PDOC PROGRESS REPORT ---
Subjective Progress Note for:: 07/05/16 Subjective:: Patient aches all over even just by touching the skin. Patient states that he hurts on both sides of the body. He has dizziness on standing. There is no chills or fever. No coughing. There is some shortness of breath. No nausea or vomiting. No diarrhea. Physical Exam Vital Signs: Temp Pulse Resp BP Pulse Ox 97.8 F 92 17 91/51 L 96 07/05/16 08:10 07/05/16 08:10 07/05/16 08:10 07/05/16 08:10 07/05/16 08:10 Intake & Output 07/04/16 07/05/16 07/06/16 06:59 06:59 06:59 Intake Total 420 Output Total 1100 Balance -680 Weight 94.7 kg General appearance: PRESENT: no acute distress, cooperative, obese Head exam: PRESENT: normocephalic, other - L Facial laceration without active bleeding at this time. Eye exam: PRESENT: EOMI Mouth exam: PRESENT: moist, neck supple Neck exam: ABSENT: JVD Respiratory exam: PRESENT: clear to auscultation gildardo. ABSENT: retraction, rhonchi, wheezes Cardiovascular exam: PRESENT: gallop. ABSENT: RRR GI/Abdominal exam: PRESENT: hypoactive bowel sounds, soft Extremities exam: PRESENT: pedal edema - Trace Neurological exam: PRESENT: alert, awake, oriented to situation Skin exam: PRESENT: dry, warm. ABSENT: cyanosis Results Laboratory Results: 07/05/16 05:37 07/05/16 05:37 07/04/16 07/05/16 07/05/16 23:25 03:30 05:37 WBC 6.8 RBC 3.00 L Hgb 9.0 L Hct 27.2 L MCV 91 MCH 30.0 MCHC 33.0 RDW 15.6 H Plt Count 404 Seg Neutrophils % 62.2 Lymphocytes % 23.8 Monocytes % 9.7 Eosinophils % 3.9 Basophils % 0.4 Absolute Neutrophils 4.3 Absolute Lymphocytes 1.6 Absolute Monocytes 0.7 Absolute Eosinophils 0.3 Absolute Basophils 0.0 Sodium Potassium Chloride Carbon Dioxide Anion Gap BUN Creatinine Est GFR ( Amer) Est GFR (Non-Af Amer) Glucose Calcium Prealbumin 18.0 Free T4 Free T3 pg/mL Urine Color YELLOW Urine Appearance SLIGHTLY-CLOUDY Urine pH 5.0 Ur Specific [place] 1.015 Urine Protein NEGATIVE Urine Glucose (UA) NEGATIVE Urine Ketones NEGATIVE Urine Blood NEGATIVE Urine Nitrite NEGATIVE Ur Leukocyte Esterase NEGATIVE Urine WBC (Auto) 1 Urine RBC (Auto) 4 07/05/16 07/05/16 05:37 05:37 WBC RBC Hgb Hct MCV MCH MCHC RDW Plt Count Seg Neutrophils % Lymphocytes % Monocytes % Eosinophils % Basophils % Absolute Neutrophils Absolute Lymphocytes Absolute Monocytes Absolute Eosinophils Absolute Basophils Sodium 136.6 L Potassium 4.3 Chloride 101 Carbon Dioxide 27 Anion Gap 9 BUN 24 H Creatinine 1.15 Est GFR ( Amer) > 60 Est GFR (Non-Af Amer) > 60 Glucose 127 H Calcium 8.1 L Prealbumin Free T4 2.00 Free T3 pg/mL 2.53 L Urine Color Urine Appearance Urine pH Ur Specific [place] Urine Protein Urine Glucose (UA) Urine Ketones Urine Blood Urine Nitrite Ur Leukocyte Esterase Urine WBC (Auto) Urine RBC (Auto) 07/04/16 07/04/16 07/05/16 23:25 23:25 05:37 Creatine Kinase 294 H 283 H CK-MB (CK-2) 4.11 Troponin I 0.030 07/05/16 05:37 Creatine Kinase CK-MB (CK-2) 3.22 Troponin I 0.043 Impressions: Head CT 07/04/16 00:00 IMPRESSION: CHRONIC CHANGES OF ATROPHY AND MICROVASCULAR ISCHEMIA. NO ACUTE PROCESS. Cervical Spine CT 07/04/16 15:07 IMPRESSION: CHRONIC DEGENERATIVE CHANGES. NO ACUTE FINDINGS. Chest X-Ray 07/04/16 20:03 IMPRESSION: Stable. Assessment & Plan - Diagnosis (1) Syncope and collapse Is this a current diagnosis for this admission?: Yes (2) CHF (congestive heart failure) Qualifiers: Congestive heart failure type: unspecified congestive heart failure type Congestive heart failure chronicity: unspecified congestive heart failure chronicity Qualified Code(s): I50.9 - Heart failure, unspecified Is this a current diagnosis for this admission?: Yes (3) Coronary artery disease Qualifiers: Coronary Disease-Associated Artery/Lesion type: unspecified vessel or lesion type Associated angina: angina presence unspecified Is this a current diagnosis for this admission?: Yes (4) Orthostatic hypotension Is this a current diagnosis for this admission?: Yes (5) Pleural effusion Is this a current diagnosis for this admission?: Yes (6) Facial trauma Qualifiers: Encounter type: initial encounter Qualified Code(s): S09.93XA - Unspecified injury of face, initial encounter Is this a current diagnosis for this admission?: Yes (7) Hypothyroid Qualifiers: Hypothyroidism type: acquired Qualified Code(s): E03.9 - Hypothyroidism, unspecified Is this a current diagnosis for this admission?: Yes (8) Hyperlipidemia Qualifiers: Hyperlipidemia type: unspecified Qualified Code(s): E78.5 - Hyperlipidemia, unspecified Is this a current diagnosis for this admission?: Yes (9) Hypertension Qualifiers: Hypertension type: essential hypertension Qualified Code(s): I10 - Essential (primary) hypertension (10) Type II diabetes mellitus Qualifiers: Diabetes mellitus complication status: with unspecified complications Diabetes mellitus local intermodal truck driver insulin use: unspecified shelter insulin use status Qualified Code(s): E11.8 - Type 2 diabetes mellitus with unspecified complications Is this a current diagnosis for this admission?: Yes - Time Time Spent with patient: 25-34 minutes - Plan Summary Plan Summary: Begin physical therapy. Patient received IV fluids earlier. We will begin midodrine. Avoid vasodilators. Continue supportive care.
[2016-07-05 12:51] LABS: CREATINE KINASE MB 2.58 ng/mL (<4.55); TROPONIN I 0.028 ng/mL
[2016-07-05] MEDS: MIDODRINE HCL 5 MG TABLET PO SCH ×2 (15:53→18:32)
[2016-07-05] MEDS: LEVOTHYROXINE SODIUM INJ/PF 0.1 MG SDV IV SCH (21:52)
[2016-07-06] MEDS: OXYCODONE HCL IR 5 MG TABLET PO PRN ×3 (00:56→19:25)
[2016-07-06] MEDS: DOCUSATE SODIUM 100 MG CAPSULE PO SCH ×2 (10:09→18:55)
[2016-07-06] MEDS: MIDODRINE HCL 5 MG TABLET PO SCH ×3 (10:17→18:55)
--- NOTE | 2016-07-06 11:02 | PDOC PROGRESS REPORT ---
[id number]. Patient has significant discomfort all over the body. Patient continues to be dizzy when he stands up. Patient denying any PND, orthopnea. Patient denied any sustained palpitations, syncope, near syncope. Patient denying any fever chills. Patient denying any other significant discomfort except for some total body ache. Patient is maintaining sinus rhythm. No significant cardiac dysrhythmias noted Review of systems: Rest review of systems negative. Medications: Medications have been reviewed. Physical Exam Vital Signs: Temp Pulse Resp BP Pulse Ox 97.4 F 102 H 16 138/77 H 96 07/06/16 08:29 07/06/16 08:29 07/06/16 08:29 07/06/16 08:29 07/06/16 08:29 Intake & Output 07/05/16 07/06/16 07/07/16 06:59 06:59 06:59 Intake Total 420 500 Output Total 1100 1000 Balance -680 -500 Weight 94.7 kg 91 kg Exam: GENERAL: well-nourished and in no acute distress. Alert and oriented x3 HEAD: Atraumatic, normocephalic. Superficial abrasion and a sutured wound noted on the left side forehead region. EYES: Pupils equal round and reactive to light, extraocular movements intact, sclera anicteric, conjunctiva are normal. ENT: TMs normal, nares patent, oropharynx clear without exudates. Moist mucous membranes. No oral ulcerations or bleeding gums noted NECK: supple without lymphadenopathy. Trachea is central. No cervical or axillary lymphadenopathy noted. Carotids are 2+, JVD WNL LUNGS: Respiration seems nonlabored, no significant accessory muscle action noted. Breath sounds clear to auscultation bilaterally and equal. No wheezes rales or rhonchi. No significant dullness noted on percussion. CHEST: Palpation of the chest wall shows midline significant chest wall tenderness on palpation secondary to surgery. HEART: [place] [employer], No PSH, 1/6 KIM aortic area, 1/6 diaz systolic murmur mitral area, no rubs, no gallops. ABDOMEN: Soft, no significant tenderness appreciated, normoactive bowel sounds. No guarding, no rebound. No rigidity noted . No masses appreciated. EXTREMITIES: Pedal pulses are 1-2+, no calf tenderness noted. No clubbing or cyanosis.trace to 1+ pedal edema noted NEUROLOGICAL: Focused neurological exam showed no significant neurologic deficit. Normal speech, no focal weakness appreciated. PSYCH: Normal mood, normal affect. Judgment and insight within normal limits. SKIN: No significant ecchymosis, rash, ulcerations or signs of pruritus noted. MUSCULOSKELETAL EXAM: No significant joint swelling noted. Results Laboratory Results: 07/05/16 05:37 07/05/16 05:37 07/04/16 07/04/16 07/05/16 23:25 23:25 05:37 Creatine Kinase 294 H 283 H CK-MB (CK-2) 4.11 Troponin I 0.030 07/05/16 07/05/16 07/05/16 05:37 11:41 11:41 Creatine Kinase 247 H CK-MB (CK-2) 3.22 2.58 Troponin I 0.043 0.028 Impressions: Head CT 07/04/16 00:00 IMPRESSION: CHRONIC CHANGES OF ATROPHY AND MICROVASCULAR ISCHEMIA. NO ACUTE PROCESS. Cervical Spine CT 07/04/16 15:07 IMPRESSION: CHRONIC DEGENERATIVE CHANGES. NO ACUTE FINDINGS. Chest X-Ray 07/04/16 20:03 IMPRESSION: Stable. Assessment & Plan - Diagnosis (1) Coronary artery disease Qualifiers: Coronary Disease-Associated Artery/Lesion type: unspecified vessel or lesion type Associated angina: angina presence unspecified Is this a current diagnosis for this admission?: Yes (2) CHF (congestive heart failure) Qualifiers: Congestive heart failure type: unspecified congestive heart failure type Congestive heart failure chronicity: unspecified congestive heart failure chronicity Qualified Code(s): I50.9 - Heart failure, unspecified Is this a current diagnosis for this admission?: Yes (3) Orthostatic hypotension Is this a current diagnosis for this admission?: Yes (4) Syncope and collapse Is this a current diagnosis for this admission?: Yes (5) Pleural effusion Is this a current diagnosis for this admission?: Yes - Notes Notes: Syncope and collapse: Most likely vasovagal based on history, post defecation syncope. However could well be for several hypotension since patient gets dizzy on standing up. Recommend avoiding constipation. Recommend avoiding overdiuresis. Avoid vasodilators. Patient should be considered for event monitor as an outpatient. Patient started on Midodrin but blood pressure is still on the low side. Orthostatic hypotension: Most likely related to diabetic neuropathy. His blood pressure stays low, recommended and added Midodrin to the regimen. CAD: Patient is status post CABG. Currently stable without any angina or angina equivalent symptoms. Discussed symptoms associated with unstable angina, acute coronary syndrome, myocardial infarction etc.aggressive risk factor modification advised. CHF: Patient has bilateral pleural effusion and also elevated BNP therefore has CHF. Currently seems relatively euvolemic. We will continue to follow patient. Bilateral pleural effusion: Most likely related to CHF. Follow CHF pathway. Dyslipidemia: Recommend antilipid therapy. - Time Time with patient: Greater than 35 minutes - CODE STATUS was discussed, patient remains full code. Surrogate decision-maker unchanged. Multiple medical problems were addressed.More than 50% of the time spent coordinating care, discussing management plans with involved caregivers. Management plans discussed with involved personnels. Medical decision making was of moderate to severe complexity. 2-D echo results were discussed. Patient questions were answered. Medications reviewed and adjusted accordingly: Yes
--- NOTE | 2016-07-06 11:03 | PDOC PROGRESS REPORT ---
Subjective Progress Note for:: 07/06/16 Subjective:: Patient aches all over even just by touching the skin mainly on both upper extremities. Patient states that he hurts on both sides of the body intermittently but not very sensitive like upper extremities. He has dizziness on standing. There is no chills or fever. No coughing. No nausea or vomiting. No diarrhea. Blood pressure reportedly improved with midodrine. Physical Exam Vital Signs: Temp Pulse Resp BP Pulse Ox 97.4 F 102 H 16 138/77 H 96 07/06/16 08:29 07/06/16 08:29 07/06/16 08:29 07/06/16 08:29 07/06/16 08:29 Intake & Output 07/05/16 07/06/16 07/07/16 06:59 06:59 06:59 Intake Total 420 500 Output Total 1100 1000 Balance -680 -500 Weight 94.7 kg 91 kg General appearance: PRESENT: no acute distress, cooperative Head exam: PRESENT: normocephalic Eye exam: PRESENT: EOMI Mouth exam: PRESENT: moist, neck supple Neck exam: ABSENT: JVD Respiratory exam: PRESENT: clear to auscultation gildardo. ABSENT: rhonchi, wheezes Cardiovascular exam: PRESENT: RRR. ABSENT: gallop GI/Abdominal exam: PRESENT: soft. ABSENT: distended, tenderness Extremities exam: PRESENT: other - Trace edema Neurological exam: PRESENT: alert, awake, oriented to situation Skin exam: PRESENT: dry, warm, other - Lacerated wound on the forehead which stitches without any active bleeding.. ABSENT: cyanosis Results Laboratory Results: 07/05/16 05:37 07/05/16 05:37 07/04/16 07/04/16 07/05/16 23:25 23:25 05:37 Creatine Kinase 294 H 283 H CK-MB (CK-2) 4.11 Troponin I 0.030 07/05/16 07/05/16 07/05/16 05:37 11:41 11:41 Creatine Kinase 247 H CK-MB (CK-2) 3.22 2.58 Troponin I 0.043 0.028 Impressions: Head CT 07/04/16 00:00 IMPRESSION: CHRONIC CHANGES OF ATROPHY AND MICROVASCULAR ISCHEMIA. NO ACUTE PROCESS. Cervical Spine CT 07/04/16 15:07 IMPRESSION: CHRONIC DEGENERATIVE CHANGES. NO ACUTE FINDINGS. Chest X-Ray 07/04/16 20:03 IMPRESSION: Stable. Assessment & Plan - Diagnosis (1) Syncope and collapse Is this a current diagnosis for this admission?: Yes (2) CHF (congestive heart failure) Qualifiers: Qualified Code(s): I50.9 - Heart failure, unspecified Is this a current diagnosis for this admission?: Yes (3) Coronary artery disease Is this a current diagnosis for this admission?: Yes (4) Orthostatic hypotension Is this a current diagnosis for this admission?: Yes (5) Pleural effusion Is this a current diagnosis for this admission?: Yes (6) Facial trauma Qualifiers: Qualified Code(s): S09.93XA - Unspecified injury of face, initial encounter Is this a current diagnosis for this admission?: Yes (7) Hypothyroid Qualifiers: Qualified Code(s): E03.9 - Hypothyroidism, unspecified Is this a current diagnosis for this admission?: Yes (8) Hyperlipidemia Qualifiers: Qualified Code(s): E78.5 - Hyperlipidemia, unspecified Is this a current diagnosis for this admission?: Yes (9) Hypertension Qualifiers: Qualified Code(s): I10 - Essential (primary) hypertension (10) Type II diabetes mellitus Qualifiers: Qualified Code(s): E11.8 - Type 2 diabetes mellitus with unspecified complications; Z79.4 - [employer] continuous churn (current) use of insulin Is this a current diagnosis for this admission?: Yes - Time Time Spent with patient: Less than 15 minutes - Plan Summary Plan Summary: Continue current medications. Continue physical therapy. [facility]. Continue supportive care. His blood pressure improved.
[2016-07-06] MEDS: LEVOTHYROXINE SODIUM INJ/PF 0.1 MG SDV IV SCH (21:40)
[2016-07-06] MEDS ORDERED: ATORVASTATIN CALCIUM 10 MG TABLET PO SCH (22:00)
[2016-07-07] MEDS: OXYCODONE HCL IR 5 MG TABLET PO PRN ×3 (00:58→22:41)
[2016-07-07] MEDS: DOCUSATE SODIUM 100 MG CAPSULE PO SCH ×2 (09:26→17:51)
[2016-07-07] MEDS: MIDODRINE HCL 5 MG TABLET PO SCH ×3 (09:26→17:50)
--- NOTE | 2016-07-07 11:43 | PDOC PROGRESS REPORT ---
Subjective Progress Note for:: 07/07/16 Subjective:: Patient complained of neck pain this time . Patient aches all over even just by touching the skin mainly on both upper extremities. Patient states that he hurts on both sides of the body intermittently but not very sensitive like upper extremities. There is no chills or fever. No coughing. No nausea or vomiting. No diarrhea. Blood pressure reportedly improved with midodrine. Physical Exam Vital Signs: Temp Pulse Resp BP Pulse Ox 98.3 F 87 16 149/74 H 96 07/07/16 07:54 07/07/16 07:54 07/07/16 07:54 07/07/16 07:54 07/07/16 07:54 Intake & Output 07/06/16 07/07/16 07/08/16 06:59 06:59 06:59 Intake Total 500 500 Output Total 1000 750 Balance -500 -250 Weight 91 kg 91.6 kg General appearance: PRESENT: no acute distress, cooperative, obese Head exam: PRESENT: normocephalic Eye exam: PRESENT: EOMI Mouth exam: PRESENT: moist Neck exam: ABSENT: JVD Respiratory exam: PRESENT: clear to auscultation gildardo. ABSENT: rhonchi, wheezes Cardiovascular exam: PRESENT: RRR. ABSENT: gallop GI/Abdominal exam: PRESENT: soft. ABSENT: distended, tenderness Extremities exam: PRESENT: +1 edema Neurological exam: PRESENT: alert, awake, oriented to situation Skin exam: PRESENT: dry, warm. ABSENT: cyanosis Results Laboratory Results: 07/05/16 05:37 07/05/16 05:37 07/04/16 07/04/16 07/05/16 23:25 23:25 05:37 Creatine Kinase 294 H 283 H CK-MB (CK-2) 4.11 Troponin I 0.030 07/05/16 07/05/16 07/05/16 05:37 11:41 11:41 Creatine Kinase 247 H CK-MB (CK-2) 3.22 2.58 Troponin I 0.043 0.028 Impressions: Head CT 07/04/16 00:00 IMPRESSION: CHRONIC CHANGES OF ATROPHY AND MICROVASCULAR ISCHEMIA. NO ACUTE PROCESS. Cervical Spine CT 07/04/16 15:07 IMPRESSION: CHRONIC DEGENERATIVE CHANGES. NO ACUTE FINDINGS. Chest X-Ray 07/04/16 20:03 IMPRESSION: Stable. Assessment & Plan - Diagnosis (1) Syncope and collapse Is this a current diagnosis for this admission?: Yes (2) CHF (congestive heart failure) Qualifiers: Congestive heart failure type: unspecified congestive heart failure type Congestive heart failure chronicity: unspecified congestive heart failure chronicity Qualified Code(s): I50.9 - Heart failure, unspecified Is this a current diagnosis for this admission?: Yes (3) Coronary artery disease Qualifiers: Coronary Disease-Associated Artery/Lesion type: unspecified vessel or lesion type Associated angina: angina presence unspecified Is this a current diagnosis for this admission?: Yes (4) Orthostatic hypotension Is this a current diagnosis for this admission?: Yes (5) Pleural effusion Is this a current diagnosis for this admission?: Yes (6) Facial trauma Qualifiers: Encounter type: initial encounter Qualified Code(s): S09.93XA - Unspecified injury of face, initial encounter Is this a current diagnosis for this admission?: Yes (7) Hypothyroid Qualifiers: Hypothyroidism type: acquired Qualified Code(s): E03.9 - Hypothyroidism, unspecified Is this a current diagnosis for this admission?: Yes (8) Hyperlipidemia Qualifiers: Hyperlipidemia type: unspecified Qualified Code(s): E78.5 - Hyperlipidemia, unspecified Is this a current diagnosis for this admission?: Yes (9) Hypertension Qualifiers: Hypertension type: essential hypertension Qualified Code(s): I10 - Essential (primary) hypertension (10) Type II diabetes mellitus Qualifiers: Diabetes mellitus complication status: with unspecified complications Diabetes mellitus long-term insulin use: unspecified long-term insulin use status Qualified Code(s): E11.8 - Type 2 diabetes mellitus with unspecified complications; Z79.4 - residential (current) use of insulin Is this a current diagnosis for this admission?: Yes - Time Time Spent with patient: 25-34 minutes - Plan Summary Plan Summary: We will hold discharge plan for now. We will try the patient on Zanaflex and a dose of Mobic. Obtain MRI of the cervical spine. Continue physical therapy. Continue supportive care. If MRI is negative for significant abnormality, we will transfer back to rehabilitation.
[2016-07-07] MEDS ORDERED: MELOXICAM 15 MG TABLET PO ONE (13:15)
[2016-07-07] MEDS: TIZANIDINE HCL 4 MG TABLET PO SCH ×2 (13:41→17:51)
[2016-07-07] MEDS ORDERED: DEXTROSE 40% GEL 15 GM TUBE X 2 PO PRN (17:25)
[2016-07-07] MEDS ORDERED: GLUCAGON,HUMAN RECOMB 1 MG INJ IM PRN (17:25)
[2016-07-07] MEDS ORDERED: DEXTROSE 40% GEL 15 GM TUBE PO PRN (17:25)
[2016-07-07] MEDS ORDERED: DEXTROSE 50%-WATER SYRINGE 25 GM/50 ML DOSE IV PRN (17:25)
[2016-07-07] MEDS ORDERED: DEXTROSE 50%-WATER SYRINGE 12.5 GM/25 ML DOSE IV PRN (17:25)
--- NOTE | 2016-07-07 20:48 | PDOC PROGRESS REPORT ---
Subjective Progress Note for:: 07/07/16 Subjective:: Patient seems to be doing better with gradual improvement. Patient has significant discomfort all over the body, however this is somewhat better. Patient today denies any dizziness. Patient denying any PND, orthopnea. Patient denied any sustained palpitations, syncope, near syncope. Patient denying any fever chills. Patient denying any other significant discomfort except for some total body ache. Patient is maintaining sinus rhythm. No significant cardiac dysrhythmias noted Review of systems: Rest review of systems negative. Medications: Medications have been reviewed. Physical Exam Vital Signs: Temp Pulse Resp BP Pulse Ox 97.8 F 94 18 115/73 98 07/07/16 16:01 07/07/16 16:01 07/07/16 16:01 07/07/16 16:01 07/07/16 16:01 Intake & Output 07/06/16 07/07/16 07/08/16 06:59 06:59 06:59 Intake Total 500 500 240 Output Total 1000 750 250 Balance -500 -250 -10 Weight 91 kg 91.6 kg Exam: GENERAL: well-nourished and in no acute distress. Alert and oriented x3 HEAD: Atraumatic, normocephalic. Facial abrasion noted with sutured wound left maxillary region below the left eye. EYES: Pupils equal round and reactive to light, extraocular movements intact, sclera anicteric, conjunctiva are normal. ENT: TMs normal, nares patent, oropharynx clear without exudates. Moist mucous membranes. No oral ulcerations or bleeding gums noted NECK: supple without lymphadenopathy. Trachea is central. No cervical or axillary lymphadenopathy noted. Carotids are 2+, JVD WNL LUNGS: Respiration seems nonlabored, no significant accessory muscle action noted. Breath sounds clear to auscultation bilaterally and equal. No wheezes rales or rhonchi. Mild bibasal dullness noted on percussion. CHEST: Palpation of the chest wall shows no significant chest wall tenderness or abnormalities. HEART: [place] D[employer]LOMAT[employer]ER, No PSH, 1/6 KIM aortic area, 1/6 diaz systolic murmur mitral area, no rubs, no gallops. ABDOMEN: Soft, no significant tenderness appreciated, normoactive bowel sounds. No guarding, no rebound. No rigidity noted . No masses appreciated. EXTREMITIES: Pedal pulses are 1-2+, no calf tenderness noted. No clubbing or cyanosis.trace to 1+ pedal edema noted NEUROLOGICAL: Focused neurological exam showed no significant neurologic deficit. Normal speech, no focal weakness appreciated. PSYCH: Normal mood, normal affect. Judgment and insight within normal limits. SKIN: No significant ecchymosis, rash, ulcerations or signs of pruritus noted. MUSCULOSKELETAL EXAM: No significant joint swelling noted. Results Laboratory Results: 07/05/16 05:37 07/05/16 05:37 07/04/16 07/04/16 07/05/16 23:25 23:25 05:37 Creatine Kinase 294 H 283 H CK-MB (CK-2) 4.11 Troponin I 0.030 07/05/16 07/05/16 07/05/16 05:37 11:41 11:41 Creatine Kinase 247 H CK-MB (CK-2) 3.22 2.58 Troponin I 0.043 0.028 Impressions: Head CT 07/04/16 00:00 IMPRESSION: CHRONIC CHANGES OF ATROPHY AND MICROVASCULAR ISCHEMIA. NO ACUTE PROCESS. Cervical Spine CT 07/04/16 15:07 IMPRESSION: CHRONIC DEGENERATIVE CHANGES. NO ACUTE FINDINGS. Chest X-Ray 07/04/16 20:03 IMPRESSION: Stable. Assessment & Plan - Diagnosis (1) Coronary artery disease Qualifiers: Coronary Disease-Associated Artery/Lesion type: unspecified vessel or lesion type Associated angina: angina presence unspecified Is this a current diagnosis for this admission?: Yes (2) CHF (congestive heart failure) Qualifiers: Congestive heart failure type: unspecified congestive heart failure type Congestive heart failure chronicity: unspecified congestive heart failure chronicity Qualified Code(s): I50.9 - Heart failure, unspecified Is this a current diagnosis for this admission?: Yes (3) Orthostatic hypotension Is this a current diagnosis for this admission?: Yes (4) Syncope and collapse Is this a current diagnosis for this admission?: Yes (5) Pleural effusion Is this a current diagnosis for this admission?: Yes - Notes Notes: Hypotension: Improved. This was orthostatic. Patient tolerating Midodrin at current dose. Syncope and collapse: No recurrence. CAD: Patient is status post bypass surgery. Currently stable. CHF: Patient seems euvolemic and stable. Generalized body ache: Currently stable. Pleural effusion: Will follow periodic chest x-ray. - Time Time with patient: 15-25 minutes - CODE STATUS was discussed, patient remains full code. Surrogate decision-maker patient's . Multiple medical problems were addressed.
[2016-07-07] MEDS: ATORVASTATIN CALCIUM 20 MG TABLET PO SCH (22:41)
[2016-07-07] MEDS: LEVOTHYROXINE SODIUM INJ/PF 0.1 MG SDV IV SCH (22:41)
--- NOTE | 2016-07-08 08:41 | PDOC PROGRESS REPORT ---
Subjective Progress Note for:: 07/08/16 Subjective:: Patient's neck pain improved with the medication. Stiffness on the upper extremity and mobility improved as well. Hypersensitivity likewise improved. There is no chills or fever. No coughing. No nausea or vomiting. No diarrhea. Blood pressure reportedly improved with midodrine. Constipated and had no bowel movement so far. Physical Exam Vital Signs: Temp Pulse Resp BP Pulse Ox 97.5 F 84 17 147/81 H 98 07/08/16 07:54 07/08/16 07:54 07/08/16 07:54 07/08/16 07:54 07/08/16 07:54 Intake & Output 07/07/16 07/08/16 07/09/16 06:59 06:59 06:59 Intake Total 500 945 Output Total 750 1050 Balance -250 -105 Weight 91.6 kg 90.3 kg General appearance: PRESENT: no acute distress, cooperative, obese Head exam: PRESENT: normocephalic Eye exam: PRESENT: EOMI Mouth exam: PRESENT: moist, neck supple Neck exam: ABSENT: JVD Respiratory exam: PRESENT: clear to auscultation gildardo, unlabored. ABSENT: rales , rhonchi, wheezes Cardiovascular exam: PRESENT: RRR. ABSENT: gallop GI/Abdominal exam: PRESENT: hypoactive bowel sounds, soft. ABSENT: distended, tenderness Extremities exam: PRESENT: other - Trace lower extremity edema Neurological exam: PRESENT: alert, awake, oriented to situation Skin exam: PRESENT: dry, warm. ABSENT: cyanosis Results Laboratory Results: 07/05/16 05:37 07/05/16 05:37 07/04/16 07/04/16 07/05/16 23:25 23:25 05:37 Creatine Kinase 294 H 283 H CK-MB (CK-2) 4.11 Troponin I 0.030 07/05/16 07/05/16 07/05/16 05:37 11:41 11:41 Creatine Kinase 247 H CK-MB (CK-2) 3.22 2.58 Troponin I 0.043 0.028 Impressions: Head CT 07/04/16 00:00 IMPRESSION: CHRONIC CHANGES OF ATROPHY AND MICROVASCULAR ISCHEMIA. NO ACUTE PROCESS. Cervical Spine CT 07/04/16 15:07 IMPRESSION: CHRONIC DEGENERATIVE CHANGES. NO ACUTE FINDINGS. Chest X-Ray 07/04/16 20:03 IMPRESSION: Stable. Assessment & Plan - Diagnosis (1) Syncope and collapse Is this a current diagnosis for this admission?: Yes (2) CHF (congestive heart failure) Qualifiers: Congestive heart failure type: unspecified congestive heart failure type Congestive heart failure chronicity: unspecified congestive heart failure chronicity Qualified Code(s): I50.9 - Heart failure, unspecified Is this a current diagnosis for this admission?: Yes (3) Coronary artery disease Qualifiers: Coronary Disease-Associated Artery/Lesion type: unspecified vessel or lesion type Associated angina: angina presence unspecified Is this a current diagnosis for this admission?: Yes (4) Orthostatic hypotension Is this a current diagnosis for this admission?: Yes (5) Pleural effusion Is this a current diagnosis for this admission?: Yes (6) Facial trauma Qualifiers: Encounter type: initial encounter Qualified Code(s): S09.93XA - Unspecified injury of face, initial encounter Is this a current diagnosis for this admission?: Yes (7) Hypothyroid Qualifiers: Hypothyroidism type: acquired Qualified Code(s): E03.9 - Hypothyroidism, unspecified Is this a current diagnosis for this admission?: Yes (8) Hyperlipidemia Qualifiers: Hyperlipidemia type: unspecified Qualified Code(s): E78.5 - Hyperlipidemia, unspecified Is this a current diagnosis for this admission?: Yes (9) Hypertension Qualifiers: Hypertension type: essential hypertension Qualified Code(s): I10 - Essential (primary) hypertension (10) Type II diabetes mellitus Qualifiers: Diabetes mellitus complication status: with unspecified complications Diabetes mellitus residential insulin use: unspecified long term care pharmacist insulin use status Qualified Code(s): E11.8 - Type 2 diabetes mellitus with unspecified complications; Z79.4 - nursing home (current) use of insulin Is this a current diagnosis for this admission?: Yes - Time Time Spent with patient: 15-24 minutes Anticipated discharge: SNF Within: within 24 hours - Plan Summary Plan Summary: Patient responded to muscle relaxant and anti-inflammatory. We will begin prednisone and continue Zanaflex. We will give a Dulcolax suppository. Continue physical therapy. Plan of transfer back to rehabilitation in the morning.
[2016-07-08] MEDS ORDERED: PREDNISONE 20 MG TABLET PO ONE (09:00)
[2016-07-08] MEDS ORDERED: BISACODYL 10 MG SUPP.RECT PR ONE (09:00)
[2016-07-08] MEDS: DOCUSATE SODIUM 100 MG CAPSULE PO SCH ×2 (10:19→17:40)
[2016-07-08] MEDS: TIZANIDINE HCL 4 MG TABLET PO SCH ×3 (10:20→17:40)
[2016-07-08] MEDS: MIDODRINE HCL 5 MG TABLET PO SCH ×3 (10:20→17:40)
[2016-07-08] MEDS: INSULIN LISPRO 100 UNIT/ML 3 ML VIAL SUBCUT PRN ×3 (12:37→21:46)
--- NOTE | 2016-07-08 20:17 | PDOC PROGRESS REPORT ---
Subjective Progress Note for:: 07/08/16 Subjective:: Patient seems to be doing better with gradual improvement. Patient has significant discomfort all over the body, however this is significantly better. Patient today denies any dizziness. Patient denying any PND, orthopnea. Patient denied any sustained palpitations, syncope, near syncope. Patient denying any fever chills. Patient denying any other significant discomfort except for some total body ache. Patient is maintaining sinus rhythm. No significant cardiac dysrhythmias noted Review of systems: Rest review of systems negative. Medications: Medications have been reviewed. Physical Exam Vital Signs: Temp Pulse Resp BP Pulse Ox 97.3 F 78 16 125/66 97 07/08/16 16:22 07/08/16 16:22 07/08/16 16:22 07/08/16 16:22 07/08/16 16:22 Intake & Output 07/07/16 07/08/16 07/09/16 06:59 06:59 06:59 Intake Total 586 334 0012 Output Total 750 1050 525 Balance -250 -105 475 Weight 91.6 kg 90.3 kg Exam: GENERAL: well-nourished and in no acute distress. Alert and oriented x3 HEAD: Atraumatic, normocephalic. Facial abrasion noted with sutured wound left maxillary region below the left eye. EYES: Pupils equal round and reactive to light, extraocular movements intact, sclera anicteric, conjunctiva are normal. ENT: TMs normal, nares patent, oropharynx clear without exudates. Moist mucous membranes. No oral ulcerations or bleeding gums noted NECK: supple without lymphadenopathy. Trachea is central. No cervical or axillary lymphadenopathy noted. Carotids are 2+, JVD WNL LUNGS: Respiration seems nonlabored, no significant accessory muscle action noted. Breath sounds clear to auscultation bilaterally and equal. No wheezes rales or rhonchi. Mild bibasal dullness noted on percussion at the extreme bases. CHEST: Palpation of the chest wall shows no significant chest wall tenderness or abnormalities. HEART: [place] [employer], No PSH, 1/6 KIM aortic area, 1/6 diaz systolic murmur mitral area, no rubs, no gallops. ABDOMEN: Soft, no significant tenderness appreciated, normoactive bowel sounds. No guarding, no rebound. No rigidity noted . No masses appreciated. EXTREMITIES: Pedal pulses are 1-2+, no calf tenderness noted. No clubbing or cyanosis.trace to 1+ pedal edema noted NEUROLOGICAL: Focused neurological exam showed no significant neurologic deficit. Normal speech, no focal weakness appreciated. PSYCH: Normal mood, normal affect. Judgment and insight within normal limits. SKIN: No significant ecchymosis, rash, ulcerations or signs of pruritus noted. MUSCULOSKELETAL EXAM: No significant joint swelling noted. Results Laboratory Results: 07/05/16 05:37 07/05/16 05:37 07/04/16 07/04/16 07/05/16 23:25 23:25 05:37 Creatine Kinase 294 H 283 H CK-MB (CK-2) 4.11 Troponin I 0.030 07/05/16 07/05/16 07/05/16 05:37 11:41 11:41 Creatine Kinase 247 H CK-MB (CK-2) 3.22 2.58 Troponin I 0.043 0.028 Impressions: Head CT 07/04/16 00:00 IMPRESSION: CHRONIC CHANGES OF ATROPHY AND MICROVASCULAR ISCHEMIA. NO ACUTE PROCESS. Cervical Spine CT 07/04/16 15:07 IMPRESSION: CHRONIC DEGENERATIVE CHANGES. NO ACUTE FINDINGS. Chest X-Ray 07/04/16 20:03 IMPRESSION: Stable. Assessment & Plan - Diagnosis (1) Coronary artery disease Qualifiers: Coronary Disease-Associated Artery/Lesion type: unspecified vessel or lesion type Associated angina: angina presence unspecified Is this a current diagnosis for this admission?: Yes (2) CHF (congestive heart failure) Qualifiers: Congestive heart failure type: unspecified congestive heart failure type Congestive heart failure chronicity: unspecified congestive heart failure chronicity Qualified Code(s): I50.9 - Heart failure, unspecified Is this a current diagnosis for this admission?: Yes (3) Orthostatic hypotension Is this a current diagnosis for this admission?: Yes (4) Syncope and collapse Is this a current diagnosis for this admission?: Yes (5) Pleural effusion Is this a current diagnosis for this admission?: Yes - Notes Notes: Patient noted to be overall much improved. His blood pressure has been stable. He is not noted to have any significant orthostatic drop or any significant symptoms of dizziness. Patient has been ambulated. As regards CHF it seems well compensated. Would recommend a chest x-ray as an outpatient. Syncope and collapse: No recurrence while in the hospital. Pleural effusion: Recommend follow-up chest x-ray on discharge or after discharge. Coronary artery disease: Symptomatically stable. We will institute beta skyler and MICHELLE inhibitor as an outpatient. - Time Time with patient: 15-25 minutes - CODE STATUS was discussed, patient remains full code. Surrogate decision-maker unchanged. Multiple medical problems were addressed.More than 50% of the time spent coordinating care, discussing management plans with involved caregivers. Management plans discussed with involved personnels. Medical decision making was of moderate complexity.
[2016-07-08] MEDS: ATORVASTATIN CALCIUM 20 MG TABLET PO SCH (21:47)
[2016-07-08] MEDS: LEVOTHYROXINE SODIUM INJ/PF 0.1 MG SDV IV SCH (21:47)
[2016-07-08] MEDS: OXYCODONE HCL IR 5 MG TABLET PO PRN (23:03)
[2016-07-09] MEDS: OXYCODONE HCL IR 5 MG TABLET PO PRN (06:31)
[2016-07-09] MEDS: DOCUSATE SODIUM 100 MG CAPSULE PO SCH (09:35)
[2016-07-09] MEDS: MIDODRINE HCL 5 MG TABLET PO SCH ×2 (09:35→14:43)
[2016-07-09] MEDS: TIZANIDINE HCL 4 MG TABLET PO SCH ×2 (09:35→14:43)
--- NOTE | 2016-07-09 10:49 | PDOC TRANSFER SUMMARY ---
General - Admit/Disc Date/PCP Admission Date/Primary Care Provider: 07/04/16 21:11 Discharge Date: 07/09/16 - Discharge Diagnosis (1) Syncope and collapse Is this a current diagnosis for this admission?: Yes (2) CHF (congestive heart failure) Is this a current diagnosis for this admission?: Yes (3) Coronary artery disease Is this a current diagnosis for this admission?: Yes (4) Orthostatic hypotension Is this a current diagnosis for this admission?: Yes (5) Pleural effusion Is this a current diagnosis for this admission?: Yes (6) Facial trauma Is this a current diagnosis for this admission?: Yes (7) Hypothyroid Is this a current diagnosis for this admission?: Yes (8) Hyperlipidemia Is this a current diagnosis for this admission?: Yes (10) Type II diabetes mellitus Is this a current diagnosis for this admission?: Yes - Additional Information Resuscitation Status: Full Code Discharge Diet: Cardiac - low-fat low-salt Discharge Activity: Activity As Tolerated, Balance Activity w/Rest, Slowly Increase Activity Home Medications: Aspirin [Aspirin EC] 81 mg PO DAILY 07/05/16 Exenatide Microspheres [Bydureon Pen] 2 mg SQ STALLWORTH 07/05/16 Ferrous Sulfate [Feosol] 325 mg PO DAILY 07/05/16 Gabapentin [Neurontin 300 mg Capsule] 300 mg PO BID 07/05/16 Glipizide [Glipizide Xl] 10 mg PO DAILY 07/05/16 Nitroglycerin [Nitrostat] 0.4 mg PO Q5MP PRN 07/05/16 Pioglitazone HCl [Actos] 30 mg PO DAILY 07/05/16 Ranitidine HCl [Acid Shingle Inspector] 150 mg PO BID 07/05/16 Tamsulosin HCl [Flomax] 0.4 mg PO DAILY 07/05/16 Atorvastatin Calcium [Lipitor 80 mg Tablet] 80 mg PO QHS #0 07/09/16 Docusate Sodium [Colace 100 mg Capsule] 100 mg PO BID capsule 07/09/16 Ipratropium/Albuterol Sulfate [Duoneb 3 ml Ampul] 3 ml NEB RTQ6HP PRN vial.neb 07/09/16 Magnesium Hydroxide [Milk of Magnesia 30 ml Udcup] 30 ml PO HSP PRN udc Methylprednisolone [Medrol Dosepack (4 mg/Tab) 21 Tab/Dosepak] 4 mg PO ASDIR PRN #21 tab.ds.pk 07/09/16 Midodrine HCl [Proamatine 5 mg Tablet] 5 mg PO TID tablet 07/09/16 Oxycodone HCl [Oxy-Ir 5 mg Tablet] 5 mg PO Q6HP PRN #20 tablet 07/09/16 Tizanidine HCl [Zanaflex 4 mg Tablet] 2 mg PO TID tablet 07/09/16 History of Present Illness Admission Date/PCP: 07/04/16 21:11 Patient complains of: Syncope History of Present Illness: SASHA GARCIA SR is a 75 year old male with a past medical history recent coronary artery bypass graft 2 weeks ago at [facility] who had been in his usual state of health until approximately 4 days ago having an episode of shortness of breath and lightheadedness prompting seek evaluation emergency room he was found to have orthostatic hypotension and pleural effusions thought secondary to recent surgery and discontinued lisinopril with plans for follow-up with cardiology for thoracentesis. However the patient sustained a presyncopal episode resulting in a fall and facial laceration while at rehabilitation and brought to the emergency room for evaluation where his workup was notable for hypotension of 93/49 and sinus tachycardia, CT imaging of the head C-spine and chest are unremarkable for any findings. Cardiac labs do reveal an elevated BNP. Cardiac enzymes has been negative.. Patient currently denies chest pain shortness of breath nausea vomiting but remains orthostatic. On questioning patient claims that he was on the toilet seat having a bowel movement when he passed out and fell hitting his head. He does not have the memory of falling. He came around likely and subsequently came to the emergency room and was admitted. Patient claims that his blood pressure has been low lately. Hospital Course Hospital Course: The patient was admitted to telemetry. The patient was referred for cardiology for syncope. Patient apparently is orthostatic. Echocardiogram did reveal a normal ejection fraction. Patient had a cervical spine CT showing degenerative changes. Head CT scan did not reveal any acute abnormality. The patient's hypotension was treated with midodrine and the MICHELLE inhibitor has been discontinued. Patient did well after the treatment and was cleared by cardiology to be transferred back to rehabilitation. The course was noted for neck pain and discomfort with associated hyperesthesia and stiffness treated with muscle relaxants and anti-inflammatory which significantly improved. The rest of the hospital stay is essentially unremarkable. Physical therapy was instituted. The patient was discharged back to senior living facility for continued rehabilitation. Physical Exam Vital Signs: Temp Pulse Resp BP Pulse Ox 97.4 F 84 17 131/70 H 97 07/09/16 08:10 07/09/16 08:10 07/09/16 08:10 07/09/16 08:10 07/09/16 08:10 Intake & Output 07/08/16 07/09/16 07/10/16 06:59 06:59 06:59 Intake Total 945 1610 Output Total 1050 750 Balance -105 860 Weight 90.3 kg 87.4 kg General appearance: PRESENT: no acute distress, cooperative, obese Head exam: PRESENT: normocephalic Eye exam: PRESENT: EOMI Mouth exam: PRESENT: moist, neck supple Neck exam: ABSENT: JVD Respiratory exam: PRESENT: clear to auscultation gildardo, unlabored Cardiovascular exam: PRESENT: RRR. ABSENT: gallop GI/Abdominal exam: PRESENT: normal bowel sounds, soft. ABSENT: distended, tenderness Extremities exam: PRESENT: other - Trace edema Neurological exam: PRESENT: alert, awake, oriented to time Skin exam: PRESENT: dry, warm. ABSENT: cyanosis Results Laboratory Results: 07/05/16 05:37 07/05/16 05:37 07/04/16 07/04/16 07/05/16 23:25 23:25 05:37 Creatine Kinase 294 H 283 H CK-MB (CK-2) 4.11 Troponin I 0.030 07/05/16 07/05/16 07/05/16 05:37 11:41 11:41 Creatine Kinase 247 H CK-MB (CK-2) 3.22 2.58 Troponin I 0.043 0.028 Impressions: Head CT 07/04/16 00:00 IMPRESSION: CHRONIC CHANGES OF ATROPHY AND MICROVASCULAR ISCHEMIA. NO ACUTE PROCESS. Cervical Spine CT 07/04/16 15:07 IMPRESSION: CHRONIC DEGENERATIVE CHANGES. NO ACUTE FINDINGS. Chest X-Ray 07/04/16 20:03 IMPRESSION: Stable. Transfer Plan - Disposition Transfer Plan: Transferred back to senior living [facility] for physical therapy. The patient will be followed by the physician at the facility. - Time Spent with Patient Time spent with patient: Less than 30 Minutes Qualifiers PATEINT BEING DISCHARGED WITH ANY OF THE FOLLOWING DIAGNOSIS?: Heart Failure HF Pt being discharged on ACEI for LVEF less than 40%?: No Reason(s) for not prescribing ACEI:: Not indicated - Normal ejection fraction, hypertension HF Pt being discharged on ARBS for LVEF less than 40%?: No Reason(s) for not prescribing ARBS:: Not indicated - Normal ejection fraction and hypotension HF Pt with Afib discharged with Warfarin?: No Reason(s) for not prescribing Warfarin:: Not indicated - No atrial fibrillation HF Pt discharged on evidence-based Beta Bekah?: No Reason(s) for not prescribing evidence-based Beta Bekah:: Contraindicated - Hypotension Plan Discharge Plan: Follow-up with primary care physician in one week. Follow-up with cardiology in 1-2 weeks. Time Spent: Less than 30 Minutes
--- NOTE | 2016-07-09 15:35 | PDOC PROGRESS REPORT ---
Subjective Progress Note for:: 07/09/16 Subjective:: Patient seems to be doing better with gradual improvement. Patient has significant discomfort all over the body, however this is significantly better. Patient today denies any dizziness. Patient denying any PND, orthopnea. Patient denied any sustained palpitations, syncope, near syncope. Patient denying any fever chills. Patient denying any other significant discomfort except for some total body ache. Patient is maintaining sinus rhythm. No significant cardiac dysrhythmias noted Review of systems: Rest review of systems negative. Medications: Medications have been reviewed. Physical Exam Vital Signs: Temp Pulse Resp BP Pulse Ox 97.2 F 78 16 110/64 97 07/09/16 12:00 07/09/16 14:00 07/09/16 12:00 07/09/16 12:00 07/09/16 12:00 Intake & Output 07/08/16 07/09/16 07/10/16 06:59 06:59 06:59 Intake Total 945 1610 600 Output Total 1050 750 Balance -105 860 600 Weight 90.3 kg 87.4 kg Exam: GENERAL: well-nourished and in no acute distress. Alert and oriented x3 HEAD: Atraumatic, normocephalic. Facial abrasion noted with sutured wound left maxillary region below the left eye. EYES: Pupils equal round and reactive to light, extraocular movements intact, sclera anicteric, conjunctiva are normal. ENT: TMs normal, nares patent, oropharynx clear without exudates. Moist mucous membranes. No oral ulcerations or bleeding gums noted NECK: supple without lymphadenopathy. Trachea is central. No cervical or axillary lymphadenopathy noted. Carotids are 2+, JVD WNL LUNGS: Respiration seems nonlabored, no significant accessory muscle action noted. Breath sounds clear to auscultation bilaterally and equal. No wheezes rales or rhonchi. Minimal dullness noted both bases. CHEST: Palpation of the chest wall shows no significant chest wall tenderness or abnormalities. HEART: [place] [employer], No PSH, 1/6 KIM aortic area, 1/6 diaz systolic murmur mitral area, no rubs, no gallops. ABDOMEN: Soft, no significant tenderness appreciated, normoactive bowel sounds. No guarding, no rebound. No rigidity noted . No masses appreciated. EXTREMITIES: Pedal pulses are 1-2+, no calf tenderness noted. No clubbing or cyanosis.trace to 1+ pedal edema noted NEUROLOGICAL: Focused neurological exam showed no significant neurologic deficit. Normal speech, no focal weakness appreciated. PSYCH: Normal mood, normal affect. Judgment and insight within normal limits. SKIN: No significant ecchymosis, rash, ulcerations or signs of pruritus noted. MUSCULOSKELETAL EXAM: No significant joint swelling noted. Results Laboratory Results: 07/05/16 05:37 07/05/16 05:37 07/04/16 07/04/16 07/05/16 23:25 23:25 05:37 Creatine Kinase 294 H 283 H CK-MB (CK-2) 4.11 Troponin I 0.030 07/05/16 07/05/16 07/05/16 05:37 11:41 11:41 Creatine Kinase 247 H CK-MB (CK-2) 3.22 2.58 Troponin I 0.043 0.028 Impressions: Head CT 07/04/16 00:00 IMPRESSION: CHRONIC CHANGES OF ATROPHY AND MICROVASCULAR ISCHEMIA. NO ACUTE PROCESS. Cervical Spine CT 07/04/16 15:07 IMPRESSION: CHRONIC DEGENERATIVE CHANGES. NO ACUTE FINDINGS. Chest X-Ray 07/04/16 20:03 IMPRESSION: Stable. Assessment & Plan - Diagnosis (1) Coronary artery disease Qualifiers: Coronary Disease-Associated Artery/Lesion type: unspecified vessel or lesion type Associated angina: angina presence unspecified Is this a current diagnosis for this admission?: Yes (2) CHF (congestive heart failure) Qualifiers: Congestive heart failure type: unspecified congestive heart failure type Congestive heart failure chronicity: unspecified congestive heart failure chronicity Qualified Code(s): I50.9 - Heart failure, unspecified Is this a current diagnosis for this admission?: Yes (3) Orthostatic hypotension Is this a current diagnosis for this admission?: Yes (4) Syncope and collapse Is this a current diagnosis for this admission?: Yes (5) Pleural effusion Is this a current diagnosis for this admission?: Yes - Notes Notes: Patient seems to have stabilized. He has ambulated without significant difficulty. His CHF seems satisfactorily controlled. He is no longer having orthostatic hypotension. Patient does seem to have some residual pleural effusion on exam. This would need to be followed as an outpatient. Patient would also benefit from optimization of therapy for underlying coronary artery disease and CHF. Patient to have a follow-up appointment. Patient offers desired to follow up with me. - Time Time with patient: 15-25 minutes - CODE STATUS was discussed, patient remains full code. Surrogate decision-maker patient's . Multiple medical problems were addressed.More than 50% of the time spent coordinating care, discussing management plans with involved caregivers. Management plans discussed with involved personnels. Medical decision making was of moderate complexity.
[2016-07-09 16:23] VITALS: BP 102/57
== END 2016-07-09 17:02 | DRG 312 ==
LOC: ER 14:53 → EH 21:11 → 5 23:35
PROVIDERS: ADMIT Internal Medicine; ATTEND Internal Medicine
PROC: 0HQ1XZZ Repair Face Skin, External Approach (ICD-10-PCS; principal; 2016-07-04)
DX: I95.1 Orthostatic hypotension (principal); J90 Pleural effusion, not elsewhere classified; I11.0 Hypertensive heart disease with heart failure; I25.10 Atherosclerotic heart disease of native coronary artery without angina pectoris; E78.5 Hyperlipidemia, unspecified; I50.9 Heart failure, unspecified; R55 Syncope and collapse; E11.40 Type 2 diabetes mellitus with diabetic neuropathy, unspecified; E03.9 Hypothyroidism, unspecified; K59.00 Constipation, unspecified; M54.2 Cervicalgia; Z87.891 Personal history of nicotine dependence; Z95.5 Presence of coronary angioplasty implant and graft; Z79.82 Long term (current) use of aspirin; Z79.899 Other long term (current) drug therapy; R00.0 Tachycardia, unspecified; Z79.84 Long term (current) use of oral hypoglycemic drugs; Z82.49 Family history of ischemic heart disease and other diseases of the circulatory system; S01.81XA Laceration without foreign body of other part of head, initial encounter; W18.11XA Fall from or off toilet without subsequent striking against object, initial encounter; Y92.121 Bathroom in nursing home as the place of occurrence of the external cause
CPT/HCPCS: 36415; 70450; 71010; 72125; 80048; 80053; 80307; 81001; 82533; 82550; 82553; 82962; 83690; 83880; 84134; 84439; 84443; 84481; 84484; 85025; 93005; 93010; 93306; 96361; 96374; 99291; G8978-GP; G8979-GP; J1815; J1885; J3490; J7030; J7512